=== PATIENT | female | born 1965 | race Caucasian/White ===

== ENCOUNTER 2020-02-23 10:44 | Outpatient (REF) | payer MEDICARE, MEDICAID, SELFPAY | END 2020-02-23 10:45 | disposition home or self-care (01) | LOC: HO.HAP 10:44 | PROVIDERS: PCP Internal Medicine; Referring Provider Internal Medicine; Visit Provider Internal Medicine | DX: Z46.1 Encounter for fitting and adjustment of hearing aid (principal) | CPT/HCPCS: V5266 ==

== ENCOUNTER 2020-07-13 09:29 | Outpatient (REF) | payer MEDICARE, MEDICAID, SELFPAY | END 2020-07-13 09:30 | disposition home or self-care (01) | LOC: HO.HAP 09:29 | PROVIDERS: Visit Provider Internal Medicine | DX: Z46.1 Encounter for fitting and adjustment of hearing aid (principal) | CPT/HCPCS: V5266 ==

== ENCOUNTER 2021-01-16 16:10 | Outpatient (REF) | payer MEDICARE, MEDICAID, SELFPAY | END 2021-01-16 16:11 | disposition home or self-care (01) | LOC: HO.HAP 16:10 | PROVIDERS: Visit Provider Internal Medicine | DX: Z46.1 Encounter for fitting and adjustment of hearing aid (principal); H90.3 Sensorineural hearing loss, bilateral | CPT/HCPCS: V5266 ==

== ENCOUNTER 2021-06-10 16:18 | Outpatient (REF) | payer MEDICARE, MEDICAID, SELFPAY | END 2021-06-10 16:19 | disposition home or self-care (01) | LOC: HO.HAP 16:18 | PROVIDERS: Visit Provider Internal Medicine | DX: Z46.1 Encounter for fitting and adjustment of hearing aid (principal); H90.3 Sensorineural hearing loss, bilateral | CPT/HCPCS: V5266 ==

== ENCOUNTER 2021-12-10 13:03 | Outpatient (REF) | payer MEDICARE, MEDICAID, SELFPAY | END 2021-12-10 13:04 | disposition home or self-care (01) | LOC: HO.HAP 13:03 | PROVIDERS: Visit Provider Internal Medicine | DX: Z46.1 Encounter for fitting and adjustment of hearing aid (principal); H90.3 Sensorineural hearing loss, bilateral | CPT/HCPCS: V5266 ==

== ENCOUNTER 2022-03-17 14:54 | Outpatient (REF) | payer MEDICARE, MEDICAID, SELFPAY | END 2022-03-17 14:55 | disposition home or self-care (01) | LOC: HO.HAP 14:54 | PROVIDERS: Visit Provider Internal Medicine | DX: Z46.1 Encounter for fitting and adjustment of hearing aid (principal); H90.3 Sensorineural hearing loss, bilateral | CPT/HCPCS: V5266 ==

== ENCOUNTER 2022-06-19 12:25 | Outpatient (REF) | payer MEDICARE, MEDICAID, SELFPAY | END 2022-06-19 12:26 | disposition home or self-care (01) | LOC: HO.HAP 12:25 | PROVIDERS: Visit Provider Internal Medicine | DX: Z46.1 Encounter for fitting and adjustment of hearing aid (principal); H90.3 Sensorineural hearing loss, bilateral | CPT/HCPCS: V5266 ==

== ENCOUNTER 2023-02-04 15:06 | Outpatient (REF) | payer MEDICARE, MEDICAID, SELFPAY | END 2023-02-04 15:07 | disposition home or self-care (01) | LOC: HO.HAP 15:06 | PROVIDERS: Visit Provider Internal Medicine | DX: Z46.1 Encounter for fitting and adjustment of hearing aid (principal); H90.3 Sensorineural hearing loss, bilateral | CPT/HCPCS: V5266 ==

== ENCOUNTER 2023-05-08 12:23 | Outpatient (REF) | payer MEDICARE, MEDICAID, SELFPAY | END 2023-05-08 12:24 | disposition home or self-care (01) | LOC: HO.HAP 12:23 | PROVIDERS: Visit Provider Internal Medicine | DX: Z46.1 Encounter for fitting and adjustment of hearing aid (principal); H90.3 Sensorineural hearing loss, bilateral | CPT/HCPCS: V5266 ==

== ENCOUNTER 2023-08-06 12:08 | Outpatient (REF) | payer MEDICARE, MEDICAID, SELFPAY | END 2023-08-06 12:09 | disposition home or self-care (01) | LOC: HO.HAP 12:08 | PROVIDERS: Visit Provider Internal Medicine | DX: Z46.1 Encounter for fitting and adjustment of hearing aid (principal); H90.3 Sensorineural hearing loss, bilateral | CPT/HCPCS: V5266 ==

== ENCOUNTER 2023-12-02 10:08 | Outpatient (REF) | payer MEDICARE, MEDICAID, SELFPAY | END 2023-12-02 10:09 | disposition home or self-care (01) | LOC: HO.HAP 10:08 | PROVIDERS: Visit Provider Internal Medicine | DX: Z46.1 Encounter for fitting and adjustment of hearing aid (principal); H90.3 Sensorineural hearing loss, bilateral | CPT/HCPCS: V5266 ==

== ENCOUNTER 2024-03-17 14:53 | Outpatient (REF) | payer MEDICARE, MEDICAID, SELFPAY ==
--- OUTSIDE RECORDS SUMMARY | 2024-03-17 15:06 | XMS_ITS | Continuity of Care Document ---
Author Organization [facility] Address [address] [place] [address] Phone [phone] Problems Active Problems Provider Date Multinodular gogale Nair M.D. Onse t: 01/01/2022 Social History Type Date Description Comments Sex Unknown Lives With Male Partner ETOH Use Rarely consumes alcohol Tobacco Use Start: Unknown Patient has never smoked Allergies and adverse reactions Active Allergies Criticality Reaction Severity Comments Date Penicillin V Unable to assess criticality 01/01/2022 Prozac Unable to assess criticality 01/01/2022 Motrin Unable to assess criticality 01/01/2022 Medications Active Medications SIG Qnty Indications Ordering Provider Date Lyvwgwevau12lc Tablets Sukhjinder Oconnell M.D. Losartan [id number] Tablets Take 1 Tablet By Mouth Once Daily Rock Beltran MD Oxybutynin Chloride ER15mg Tablets ER 24HR Take 1 Tablet By Mouth Once Daily Rock Beltrna MD Tobramycin-Dexamethas one0.3-0.1% Suspension Instill 3 Drops Into Affected Ear Twice Daily For 14 Days Unknown Clotrimazole1% Cream Apply Cream Topically To Affected Area(S) Twice Daily Unknown Estradiol0.1mg/GM Cream Insert 1 Gram Of Cream Vaginally AT Bedtime 3 Nights A Week Unknown Albuterol Sulfate DGS277(90Base) mcg/Act Aerosol Inhale 2 Puffs By Mouth Every 4 Hours as Needed For Wheezing Rock Beltran MD Eq Allergy Hhyitu01qa Tablets Take 1 Tablet By Mouth Once Daily Sukhjinder Oconnell M.D. Idjlgysvj744-0.5mcg/A ct Aerosol Inhale 2 Puffs By Mouth Twice Daily. Rinse Mouth With Water After Use To Reduce [employer] fitch MD Drmykcgsf0qx Tablets Take 1 Tablet By Mouth Once Daily as Needed Unknown [id number] Tablets Take 2 Tablets By Mouth On Day 1 And Then Take 1 Tablet By Mouth Once A Day On D Unknown Vital Signs Date Vital Result Comment 01/01/2022 11:12am BP Systolic 104 mmHg BP Diastolic 86 mmHg Heart Rate 72 /min Height 61 inches 5'1 Weight 204.38 lb BMI (Body Mass Index) 38.6 kg/m2 Results Test Acquired Date Facility Test Result H/L Range Note Laboratory test finding 01/01/2022 [facility] TSH With Reflex To FT4 1.71 uIU/mL (0.4-4.2 ) Comprehensive Metabolic Panl 01/01/2022 [facility] Glucose 106 mg/dL High (70-99) BUN 17 mg/dL (6-20) Creatinine 0.9 mg/dL (0.5-1.0 ) Sodium 142 mmol/L (133-145 ) Potassium 4.8 mmol/L (3.6-5.2 ) Chloride 107 mmol/L (98-107) Bicarbonate 26 mmol/L (22-29) Anion Gap 9 (4-17) Albumin 4.4 GM/DL (3.4-4.8 ) Calcium 10.1 mg/dL (8.6-10. 5) Bilirubin,Total 0.5 mg/dL (0-1.2 ) Total Protein 6.3 GM/DL (6.2-8.2 ) Ag Ratio 2.3 Ast 16 U/L (0-32) Alk Phos 95 U/L (35-104) Alt 13 U/L (0-33) Estimated GFR Creatinine 78 ML/MIN/1.7 3M2 1 Laboratory test finding 01/01/2022 [facility] 25Oh Vitamin D 21.0 NG/ML (20-50) PTH, Intact 99 pg/mL High (15-65) Phosphorus 2.6 mg/dL (2.5-4.5 ) 1 Creatinine based est imated glomerular filtration (eGFR) in adults is calculated using the [employer] recommended 2020 CKD-EPI equation. Estimates GFR from serum creatinine, age and sex. Medical Devices Description No Information Available Encounters Type Date Location Provider Dx Diagnosis Office Visit 01/01/2022 11:00a Main Office Naga Nair M.D. E04.2 Nontoxic multinodular goiter E21.3 Hyperparathyroidism, unspecified Assessments Date Code Description Provider 01/01/2022 E04.2 Nontoxic multinodular goiter Naga Nair M.D. 01/01/2022 E21.3 Hyperparathyroidism Naga Frankel M.D. Plan of Treatment No Information Available Functional Status Description No Information Available Mental Status Description No Information Available Referrals Description No Information Available
--- OUTSIDE RECORDS SUMMARY | 2024-03-17 15:06 | XMS_ITS | Data Portability ---
Author Organization [place] - [facility], Allergy Address [address] [address] Care Team Providers Care Bobcat Operator Name Role Phone CHAPIN LIU Primary Care Provider Assessment Encounter Date Assessment Date Assessment LastModified by Organization Details LastModified Time 01/08/2024 01/08/2024 58-year-old female with bilateral canal wall down mastoidectomy and bilateral TM perforations presents for evaluation of otorrhea. On examination there is mild otorrhea on the right side coming from the middle ear space. Mastoid cavity is remarkably clean. There is some squamous debris within the left mastoid cavity which was carefully debrided today. Stable, dry total TM perforation on the side as well. I recommended otic drops for the right side and continued dry ear precaution. Follow-up in 6 months for routine mastoid debridement. [email or web address] Not available 01/08/2024 09:35:35 Plan of Treatment Reminders Order Date Submit Date Provider Last Modified By Organization Details Last Modified Time Details Appointments Establish ed 10 2024 09:30A M PARISH ZAMORANO MD Not available Not available Not available Lab None recorded. Referral None recorded. Procedures None recorded. Surgeries None recorded. Imaging None recorded. Medication Orders ofloxacin 0.3 % ear drops 2023 024 [facility], [address] [facility], [place], [address], 01/08/2024 09:38:32 Patient TargetsNo targets recorded. Patient InstructionsNo instructions recorded. Reason for Referral None Reported. Problems Name Problem SNOMED Code Status Onset Date Resolution Date Notes Provider Name and Address Organization Details Recorded Time Otorrhea of left ear [id number] 84573 Active 2019 Otorrhea , left ear; Note: Date Diagnose d: 08/11/2019 2:23 PM (H92.12) Not Available [facility] 4 02:14:15 Acute frontal sinusiti s 23184252 Completed 202211/06/2023 Acute recurren t frontal sinusiti s; Note: Date Diagnose d: 11/04/2022 4:04 PM (J01.11) Not Available [facility] 4 02:13:04 Chronic mastoidi tis 14372535 Active 2014 Chronic mastoidi tis; Note: Date Diagnose d: 5 10:59 AM (383.1) Not Available [facility] 4 02:13:07 Postmast oidectom y complica tion 54517310 Active 2014 Other disorder s followin g mastoide ctomy, left ear; Note: Date Diagnose d: 03/15/20 15 1:38 PM (H95.192 ) Not Available [facility] 4 02:13:31 Impacted cerumen in right ear 25183755269 04401 Active 2019 Impacted cerumen, right ear; Note: Date Diagnose d: 0 4:17 PM (H61.21) Impact ed cerumen, right ear; Note: Date Diagnose d: 0 9:18 AM (H61.21) ; Start Date : 07/29/19 20 Not Available [facility] 4 02:13:38 Mixed conducti ve and sensorin eural hearing loss, bilatera l 304516390 Active 2018 Hearing loss: Mixed hearing loss, bilatera l; Location : [facility] Condit ion: stable N ote: Date Diagnose d: 4 3:07 PM (389.22) ; Start Date : 01/04/20 14 Mixed conducti ve and sensorin eural hearing loss, bilatera l; Note: Date Diagnose d: 02/03/20 19 9:53 AM (H90.6) Mixed conducti ve and sensorin eural hearing loss, bilatera l; Note: Date Diagnose d: 03/15/20 15 1:38 PM (H90.6) [mapped from ICD9 code: 389.22] ; Start Date : 03/15/20 15 Not Available [facility] 4 02:14:19 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; Note: Date Diagnose d: 11/07/2014 11:50 AM (383.33) Not Available [facility] 4 02:13:51 Marginal perforat ion of tympanic membrane 57039001 Active 2016 Other marginal perforat ions of tympanic membrane , left ear; Note: Date Diagnose d: 12/09/2016 2:59 PM (H72.2X2 ) Not Available [facility] 4 02:14:07 Otorrhea of right ear 56073802884 02069 Active 2022 Otorrhea , right ear; Note: Date Diagnose d: 11/04/2022 4:04 PM (H92.11) Not Available [facility] 4 02:13:52 Superfic ial mycosis 692914412 Completed 201611/06/2023 Other specifie d superfic ial mycoses; Note: Date Diagnose d: 7 2:12 PM (B36.8) Not Available [facility] 4 02:13:15 Acute lymphade nitis 35509504 Active 2016 Acute lymphade nitis, unspecif ied; Note: Date Diagnose d: 12/09/2016 2:58 PM (L04.9) Not Available [facility] 4 02:14:12 Benign paroxysm al position al vertigo 692041750 Active 2020 Benign paroxysm al vertigo, right ear; Note: Date Diagnose d: 1 3:57 PM (H81.11) Not Available [facility] 4 02:14:42 Otorrhea of bilatera l ears 73010769868 09445 Active 2017 Otorrhea , bilatera l; Note: Date Diagnose d: 8 3:55 PM (H92.13) Not Available [facility] 4 02:14:18 Acute sinusiti s 59434582 Completed 201811/06/2023 Other acute sinusiti s; Note: Date Diagnose d: 9 3:44 PM (J01.80) Not Available [facility] 4 02:13:51 Otorrhea 40831336 Active 2014 Otorrhea ; Note: Date Diagnose d: 06/05/2014 10:29 AM (388.60) Not Available [facility] 4 02:14:31 Total perforat ion of right tympanic membrane 87853566512 95062 Active 2016 Total perforat ions of tympanic membrane , right ear; Note: Date Diagnose d: 12/09/2016 2:58 PM (H72.821 ) Not Available [facility] 4 02:13:39 Pain of left temporom andibula r joint 38881040156 745645 Active 2016 Arthralg ia of left temporom andibula r joint; Note: Date Diagnose d: 12/09/2016 3:00 PM (M26.622 ) Not Available [facility] 4 02:13:11 Perforat ion of tympanic membrane 77965322 Active 2013 Perforat ion of tympanic membrane , unspecif ied; Location : [place]ater[place] l Condit ion: stable N ote: Date Diagnose d: 4 3:07 PM (384.20) Not Available [facility] 4 02:13:34 Finding of device of ear 723002260 Active 2022 Presence of bone-con duction hearing device; Note: Date Diagnose d: 12/11/2022 5:42 PM (Z96.29) Not Available [facility] 4 02:12:51 Total perforat ion of bilatera l tympanic membrane s 68289495608 25384 Active 2020 Total perforat ions of tympanic membrane , bilatera l; Note: Date Diagnose d: 1 3:58 PM (H72.823 ) Not Available [facility] 4 02:13:15 Bilatera l perforat ion of tympanic membrane s 30264879383 93761 Active 2014 Unspecif ied perforat ion of tympanic membrane , bilatera l; Note: Date Diagnose d: 03/15/20 15 1:38 PM (H72.93) [mapped from ICD9 code: 384.20] Not Available [facility] 4 02:14:04 Candidal otitis externa 87978724 Active 2014 Otomycos is; Note: Date Diagnose d: 5 3:09 PM (112.82) Not Available [facility] 4 02:14:19 Problem Notes None recorded. Procedures Surgical History Date Name Laterality Status Provider Name and Address Organization Details Recorded Time 4 Debridement of Mastoid Cavity bilat completed ADAN CASTANEDA PA-C [address] [place] [address], [address], [facility] - [facility] 01/08/2024 09:33:33 Imaging Results None recorded. Procedure Notes None recorded. Medical Equipment None Reported. Allergies Allergen ID Allergen Name Allergen Category Reaction Reaction Severity Criticality Documentation Date Start Date Code Code System Note Provider Name and Address Organization Details Recorded Time 20222 clindamyc in hydrochlo ride medicatio n other Not available Not available 08/18/2023 66519 RxNorm React ion: unkno wn, unspe cifie d;; Not Available [facility] 4 00:49:57 06771 ibuprofen medicatio n other Not available Not available 08/18/2023 5640 RxNorm React ion: unkno wn, unspe cifie d;; Not Available [facility] 4 00:50:08 29690 latex environme nt,medica tion other Not available Not available 08/18/2023 84427 91 RxNorm React ion: unkno wn, unspe cifie d;; Not Available [facility] 4 00:50:09 90534 oxycodone medicatio n other Not available Not available 08/18/2023 7804 RxNorm React ion: unkno wn, unspe cifie d;; Not Available [facility] 4 00:50:10 57271 ciproflox acin hydrochlo ride medicatio n other Not available Not available 08/18/2023 83724 RxNorm React ion: unkno wn, unspe cifie d;; Not Available [facility] 4 00:50:22 17967 fluoxetin e medicatio n other Not available Not available 08/18/2023 4493 RxNorm React ion: unkno wn, unspe cifie d;; Not Available [facility] 4 00:24:17 07529 acetamino phen medicatio n other Not available Not available 08/18/2023 161 RxNorm React ion: unkno wn, unspe cifie d;; Not Available [facility] 4 00:50:40 64213 penicilli n V potassium medicatio n other Not available Not available 08/18/2023 95044 5 RxNorm React ion: unkno wn, unspe cifie d;; Not Available [facility] 4 00:50:41 Medications Name Sig Start Date Stop Date Status Note LastModified by Organization Details LastModified Time vitamin d3 (sully) 50mcg cap TAKE 1 CAPSULE BY MOUTH ONCE DAILY active Not Available Not Available No t Available losartan 50 mg tablet active Medicati on ID: [id number] B rand Name: losartan Send Method: E-Prescr ibed Sub s Allowed: subs OK Medic ationGen ericName : losartan Not Available Not Available Not Available oxybutyni n chloride ER 15 mg tablet,ex tended release 24 hr TAKE 1 TABLET BY MOUTH ONCE DAILY active Not Available Not Available No t Available doxycycli ne hyclate 100 mg capsule by mouth 2022 active Medicati on ID: [id number] D uration Value: 10 Brand Name: doxycycl ine hyclate Send Method: E-Prescr ibed Sub s Allowed: subs OK Speci al Instruct ion: Take 1 po BID X 10 days Med icationG enericNa me: doxycycl ine hyclate Not Available Not Available Not Available cetirizin e 10 mg tablet TAKE 1 TABLET BY MOUTH AT BEDTIME STOP LORATADI NE active Not Available Not Available No t Available oxybutyni n chloride ER 10 mg tablet,ex tended release 24 hr 12/20 completed Medicati on ID: 188 Dura tion Value: 30 Reason: () Brand Name: oxybutyn in chloride Send Method: E-Prescr ibed Sub s Allowed: subs OK Speci al Instruct ion: TAKE 1 TABLET BY MOUTH EVERY DAY Medi cationGe nericNam e: oxybutyn in chloride Not Available Not Available Not Available Lotrisone 1 %-0.05 % topical cream 10/02 completed Medicati on ID: [id number] P rescribe d By Name: COLLEEN Mesa nd Name: Lotrison e Send Method: E-Prescr ibed Sub s Allowed: subs OK Speci al Instruct ion: apply to external ear tid X 2 weeks Me dication GenericN tank: Lotrison e Not Available Not Available Not Available hydrocodo ne 5 mg-acetam inophen 325 mg tablet 12/20 completed Medicati on ID: [id number] D uration Value: 5 Reason: () Brand Name: hydrocod one-acet aminophe n Send Method: E-Prescr ibed Sub s Allowed: subs OK Medic ationGen ericName : hydrocod one-acet aminophe n Not Available Not Available Not Available Zithromax Z-Danny 250 mg tablet Take 1 pack by mouth as directed active Medicati on ID: [id number] P rescribe d By Name: Contreras Stern nd Name: Zithroma x Z-Danny Se nd Method: E-Prescr ibed Sub s Allowed: subs OK Medic ationGen ericName : Zithroma x Z-Danny Not Available Not Available Not Available acetamino phen 300 mg-codein e 30 mg tablet 01/02 completed Medicati on ID: 186 Dura tion Value: 3 Reason: () Brand Name: acetamin ophen-co deine Se nd Method: E-Prescr ibed Sub s Allowed: subs OK Speci al Instruct ion: TAKE 1 TABLET BY MOUTH EVERY 4 HOURS Me dication GenericN tank: acetamin ophen-co deine Not Available Not Available Not Available ofloxacin 0.3 % ear drops 4 drops into right ear twice daily for 14 days. active Not Available Not Available No t Available famotidin e 20 mg tablet active Medicati on ID: [id number] B rand Name: famotidi ne Send Method: E-Prescr ibed Sub s Allowed: subs OK Medic ationGen ericName : famotidi ne Not Available Not Available Not Available lorazepam 0.5 mg tablet 03/06 completed Medicati on ID: [id number] D uration Value: 30 Brand Name: lorazepa m Send Method: E-Prescr ibed Sub s Allowed: subs OK Medic ationGen ericName : lorazepa m Not Available Not Available Not Available metoclopr amide 5 mg tablet 01/03 completed Medicati on ID: 194 Dura tion Value: 2 Reason: () Brand Name: metoclop ramide HCl Send Method: E-Prescr ibed Sub s Allowed: subs OK Speci al Instruct ion: TAKE 1 TABLET BY MOUTH EVERY 6 HOURS DIRECTED Medicat ionGener icName: metoclop ramide HCl Not Available Not Available Not Available K-Y Lubricati ng topical jelly 12/20 completed Medicati on ID: [id number] P rescribe d By Name: COLLEEN Mesa nd Name: K-Y Lubricat ing Send Method: E-Prescr ibed Sub s Allowed: subs BRIANNA Henry al Instruct ion: Apply to nose TID Medi cationGe nericNam e: K-Y Lubricat ing Not Available Not Available Not Available sulfaceta mide sodium 10 % eye drops 2014 active Medicati on ID: [id number] Du ration Value: 10 Prescri bed By Name: COLLEEN Mesa nd Name: sulfacet amide sodium S end Method: E-Prescr ibed Sub s Allowed: subs BRIANNA Henry al Instruct ion: 4 drops into left ear bid X 10 days Med icationG enericNa me: sulfacet amide sodium Not Available Not Available Not Available Bactroban 2 % topical ointment 2019 active Medicati on ID: [id number] Pr escribed By Name: COLLEEN Mesa nd Name: Bactroba n Send Method: E-Prescr ibed Sub s Allowed: subs OK Speci al Instruct ion: to be applied to the ear in office as directed Medicat ionGener icName: Bactroba n Not Available Not Available Not Available losartan 25 mg tablet 03/06 completed Medicati on ID: [id number] D uration Value: 90 Brand Name: losartan Send Method: E-Prescr ibed Sub s Allowed: subs OK Medic ationGen ericName : losartan Not Available Not Available Not Available clotrimaz ole 1 % topical solution 03/15 completed Medicati on ID: [id number] Pr escribed By Name: COLLEEN Mesa nd Name: eleuterio millichris Sen d Method: E-Prescr ibed Sub s Allowed: subs OK Speci al Instruct ion: 4 drops to affected ear three times a day X 14 days Med icationG enericNa me: clotrima zole Not Available Not Available Not Available pyridoxin e (vitamin B6) 50 mg tablet TAKE 2 TABLETS BY MOUTH ONCE DAILY active Not Available Not Available No t Available hydrocort isone 2.5 % topical cream 05/04 completed Medicati on ID: [id number] P rescribe d By Name: COLLEEN Mesa nd Name: hydrocor tisone S end Method: E-Prescr ibed Sub s Allowed: subs OK Specmichael al Instruct ion: Apply to the external ears BID X 30 days Med icationG enericNa me: hydrocor tisone Not Available Not Available Not Available fluvoxami ne 50 mg tablet 12/20 completed Medicati on ID: 419 Reas on: () Brand Name: fluvoxam ine Send Method: E-Prescr ibed Sub s Allowed: subs OK Medic ationGen ericName : fluvoxam ine Not Available Not Available Not Available estradiol 0.5 mg tablet 03/06 completed Medicati on ID: 192 Dura tion Value: 30 Brand Name: estradio l Send Method: E-Prescr ibed Sub s Allowed: subs OK Speci al Instruct ion: TAKE 1 TABLET BY MOUTH EVERY DAY Medi cationGe nericNam e: estradio l Not Available Not Available Not Available lorazepam 1 mg tablet active Medicati on ID: [id number] B rand Name: lorazepa m Send Method: E-Prescr ibed Sub s Allowed: subs OK Medic ationGen ericName : lorazepa m Not Available Not Available Not Available Nasonex 50 mcg/actua tion [place] 2 spray into both nostrils 2013 active Medicati on ID: 418 Dura tion Value: 10 Brand Name: Nasonex Send Method: E-Prescr ibed Sub s Allowed: subs OK Medic ationGen ericName : Nasonex Not Available Not Available Not Available albuterol sulfate HFA 90 mcg/actua tion aerosol inhaler INHALE 2 PUFFS BY MOUTH EVERY 6 HOURS active Not Available Not Available No t Available clotrimaz ole 1 % topical cream APPLY CREAM TOPICALL Y TWICE DAILY FOR 14 DAYS active Not Available Not Available No t Available tobramyci n 0.3 %-dexamet hasone 0.1 % eye drops,cami pension INSTILL 3 DROPS INTO AFFECTED EAR TWICE DAILY FOR 14 DAYS active Not Available Not Available No t Available Saline Nasal 0.65 % spray aerosol 1 spray into both nostrils 2014 active Medicati on ID: [id number] Pr escribed By Name: COLLEEN Mesa nd Name: Saline Nasal Se nd Method: E-Prescr ibed Sub s Allowed: subs OK Medic ationGen ericName : Saline Nasal Not Available Not Available Not Available Vitamin D3 25 mcg (1,000 unit) tablet 03/06 completed Medicati on ID: 416 Bran d Name: Vitamin D3 Send Method: E-Prescr ibed Sub s Allowed: subs OK Medic ationGen ericName : Vitamin D3 Not Available Not Available Not Available Allergy Relief (loratadi ne) 10 mg tablet 03/06 completed Medicati on ID: [id number] D uration Value: 90 Brand Name: Allergy Relief (loratad ine) Sen d Method: E-Prescr ibed Sub s Allowed: subs OK Speci al Instruct ion: TAKE 1 TABLET BY MOUTH ONCE DAILY Me dication GenericN tnak: Allergy Relief (loratad ine) Not Available Not Available Not Available Cortispor in 1 % topical ointment 09/08 completed Medicati on ID: [id number] Pr escribed By Name: COLLEEN Mesa nd Name: Cortispo rin Send Method: E-Prescr ibed Sub s Allowed: subs OK Speci al Instruct ion: To have applied to ear in office as directed Medicat ionGener icName: Cortispo rin Not Available Not Available Not Available Zithromax TRI-DANNY 500 mg tablet 1 pack by mouth 2017 active Medicati on ID: [id number] D uration Value: 3 Prescri bed By Name: Contreras Stern nd Name: Zithroma x TRI-DANNY Send Method: E-Prescr ibed Sub s Allowed: subs OK Medic ationGen ericName : Zithroma x TRI-DANNY Not Available Not Available Not Available Symbicort 160 mcg-4.5 mcg/actua tion HFA aerosol inhaler 2016 active Medicati on ID: [id number] D uration Value: 30 Brand Name: Symbicor t Send Method: E-Prescr ibed Sub s Allowed: subs OK Medic ationGen ericName : Symbicor t Not Available Not Available Not Available Vitamin D3 50 mcg (2,000 unit) capsule active Medicati on ID: [id number] B rand Name: Vitamin D3 Send Method: E-Prescr ibed Sub s Allowed: subs OK Speci al Instruct ion: TAKE 1 CAPSULE BY MOUTH ONCE DAILY Me dication GenericN tank: Vitamin D3 Not Available Not Available Not Available Breo Ellipta 100 mcg-25 mcg/dose powder for inhalatio n 12/20 completed Medicati on ID: 191 Dura tion Value: 30 Reason: () Brand Name: Breo Ellipta Send Method: E-Prescr ibed Sub s Allowed: subs OK Speci al Instruct ion: TAKE 1 PUFF BY MOUTH EVERY DAY Medi cationGe nericNam e: Breo Ellipta Not Available Not Available Not Available Vitals Date Recorded Body weight Body mass index (BMI) Body height Provider Name and Address Organization Details Last Updated DateTime 01/08/2024 77351.37 g 33.3 kg/m2 160.02 cm Kwan Moran [place] - [facility] 01/08/2024 09:09:31 Social History None recorded. Functional Status None recorded. Mental Status None recorded. Family History Nothing Reported. Medical History No medical history recorded. Gynecological HistoryNo gynecological history recorded. Obstetrics History GPAL:G 0 P 0 0 0 0 Past Encounters Encounter ID Performer Location Encounter Start Date Encounter Closed Date Diagnosis/Indication Diagnosis SNOMED-CT Code Diagnosis ICD10 Code [id number] MODESTO MCMILLAN MD [facility] [address] [address] 01/08/2024 08:59:51 01/08/2024 09:25:15 Bilateral perforation of tympanic membranes 9440124762 493085 H72.93 Chronic mastoiditis 8064 5004 H70.13 Finding of device of ear 780978086 Z96.29 Otorrhea of right ear 10 68519562 141029 H92.11 Total perf oration of bilateral tympanic membranes 1380569623 546123 H72.823 Health Concerns Section Related Observation LastModified by Organization Detai ls LastModified Time None Recorded Concern Status LastModified by Organization Details LastModified Time None Recorded Advance Directives Directive None Recorded Payers Encounter Date Sequence Insurance Name Policy Number Policy Walsh Covered Member ID Walsh Member ID Guarantor Name 01/08/2024 1 [place]ARE [place] [employer] Camilachrista Guerin [id number] Camila Guerin 01/08/2024 2 [place] [facility] Camila Guerin [id number] Camila Guerin Notes Date Note Type Note Provider Name and Address Organization Details Recorded Time 01/08/2024 text/html 58-year-old female with bilateral mastoid cavity presents for evaluation of otorrhea. She has been having yellow drainage from both sides and want her ears checked. MODESTO MCMILLAN MD [address] [place] [address], [place], [address], [facility] - [facility] 01/08/2024 09:47:00 OBGyn Episode No OBEpisode recorded.
--- OUTSIDE RECORDS SUMMARY | 2024-03-17 15:06 | XMS_ITS | Continuity of Care Document ---
Author Organization [place] - [facility], [facility] Address [address] [place] [address] Care Team Providers Care Intermodal Truck Driver Name Role Phone HILDASERJIOCHAPIN SIMS Primary Care Provider Assessment Encounter Date Assessment [...] in 6 months for routine mastoid debridement. [email or web address] Not available 01/08/2024 09:35:35 Plan of Treatment Reminders Order Date Submit Date Provider Last Modified By Organization Details Last Modified Time Details Appointments Establish ed 10 2024 09:30A M PARISH ZAMORANO MD Not available Not available Not available Lab None recorded. Referral None recorded. Procedures None recorded. Surgeries None recorded. Imaging None recorded. Medication Orders ofloxacin 0.3 % ear drops 2023 024 [facility], [address] [facility], [place], [address], 01/08/2024 09:38:32 Patient TargetsNo targets recorded. Patient InstructionsNo instructions recorded. Reason for Referral None Reported. Problems Name Problem SNOMED Code Status Onset Date Resolution Date Notes Provider Name and Address Organization Details Recorded Time Otorrhea of left ear [id number] 88533 Active 2019 Otorrhea , left ear; Note: Date Diagnose d: 08/11/2019 2:23 PM (H92.12) Not Available [facility] 4 02:14:15 Acute frontal sinusiti s 47733040 Completed 202211/06/2023 Acute recurren t frontal sinusiti s; Note: Date Diagnose d: 11/04/2022 4:04 PM (J01.11) Not Available [facility] 4 02:13:04 Chronic mastoidi tis 02404966 Active 2014 Chronic mastoidi tis; Note: Date Diagnose d: 5 10:59 AM (383.1) Not Available [facility] 4 02:13:07 Postmast oidectom y complica tion 35961205 Active 2014 Other disorder s followin g mastoide ctomy, left ear; Note: Date Diagnose d: 03/15/20 15 1:38 PM (H95.192 ) Not Available [facility] 4 02:13:31 Impacted cerumen in right ear 70680734031 63409 Active 2019 Impacted cerumen, right ear; Note: Date Diagnose d: 0 4:17 PM (H61.21) Impact ed cerumen, right ear; Note: Date Diagnose d: 0 9:18 AM (H61.21) ; Start Date : 07/29/19 20 Not Available [facility] 4 02:13:38 Mixed conducti ve and sensorin eural hearing loss, bilatera l 708886840 Active 2018 Hearing loss: Mixed hearing loss, bilatera l; Location : [facility] Condit ion: stable N ote: Date [...] Start Date : 03/15/20 15 Not Available [facility] 4 02:14:19 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; Note: Date Diagnose d: 11/07/2014 11:50 AM (383.33) Not Available [facility] 4 02:13:51 Marginal perforat ion of tympanic membrane 79887302 Active 2016 Other marginal perforat ions of tympanic membrane , left ear; Note: Date Diagnose d: 12/09/2016 2:59 PM (H72.2X2 ) Not Available [facility] 4 02:14:07 Otorrhea of right ear 56732538880 37512 Active 2022 Otorrhea , right ear; Note: Date Diagnose d: 11/04/2022 4:04 PM (H92.11) Not Available [facility] 4 02:13:52 Superfic ial mycosis 043066533 Completed 201611/06/2023 Other specifie d superfic ial mycoses; Note: Date Diagnose d: 7 2:12 PM (B36.8) Not Available [facility] 4 02:13:15 Acute lymphade nitis 14864372 Active 2016 Acute lymphade nitis, unspecif ied; Note: Date Diagnose d: 12/09/2016 2:58 PM (L04.9) Not Available [facility] 4 02:14:12 Benign paroxysm al position al vertigo 110550774 Active 2020 Benign paroxysm al vertigo, right ear; Note: Date Diagnose d: 1 3:57 PM (H81.11) Not Available [facility] 4 02:14:42 Otorrhea of bilatera l ears 64779034319 28677 Active 2017 Otorrhea , bilatera l; Note: Date Diagnose d: 8 3:55 PM (H92.13) Not Available [facility] 4 02:14:18 Acute sinusiti s 73689700 Completed 201811/06/2023 Other acute sinusiti s; Note: Date Diagnose d: 9 3:44 PM (J01.80) Not Available [facility] 4 02:13:51 Otorrhea 08929360 Active 2014 Otorrhea ; Note: Date Diagnose d: 06/05/2014 10:29 AM (388.60) Not Available [facility] 4 02:14:31 Total perforat ion of right tympanic membrane 31474142129 24250 Active 2016 Total perforat ions of tympanic membrane , right ear; Note: Date Diagnose d: 12/09/2016 2:58 PM (H72.821 ) Not Available [facility] 4 02:13:39 Pain of left temporom andibula r joint 11250051267 295360 Active 2016 Arthralg ia of left temporom andibula r joint; Note: Date Diagnose d: 12/09/2016 3:00 PM (M26.622 ) Not Available [facility] 4 02:13:11 Perforat ion of tympanic membrane 05509826 Active 2013 Perforat ion of tympanic membrane , unspecif ied; Location : [place]ater[place] l Condit ion: stable N ote: Date Diagnose d: 4 3:07 PM (384.20) Not Available [facility] 4 02:13:34 Finding of device of ear 191234932 Active 2022 Presence of bone-con duction hearing device; Note: Date Diagnose d: 12/11/2022 5:42 PM (Z96.29) Not Available [facility] 4 02:12:51 Total perforat ion of bilatera l tympanic membrane s 52931007748 84957 Active 2020 Total perforat ions of tympanic membrane , bilatera l; Note: Date Diagnose d: 1 3:58 PM (H72.823 ) Not Available [facility] 4 02:13:15 Bilatera l perforat ion of tympanic membrane s 03873851577 63512 Active 2014 Unspecif ied perforat ion of tympanic membrane , bilatera l; Note: Date Diagnose d: 03/15/20 15 1:38 PM (H72.93) [mapped from ICD9 code: 384.20] Not Available [facility] 4 02:14:04 Candidal otitis externa 64875493 Active 2014 Otomycos is; Note: Date Diagnose d: 5 3:09 PM (112.82) Not Available [facility] 4 02:14:19 Problem Notes None recorded. Procedures Surgical History Date Name Laterality Status Provider Name and Address Organization Details Recorded Time 4 Debridement of Mastoid Cavity bilat completed ADAN CASTANEDA PA-C [address] [place] [address], [address], [facility] 01/08/2024 09:33:33 Imaging Results None recorded. Procedure Notes None recorded. Medical Equipment None Reported. Allergies Allergen ID Allergen Name Allergen Category Reaction Reaction Severity Criticality Documentation Date Start Date Code Code System Note Provider Name and Address Organization Details Recorded Time 69188 clindamyc in hydrochlo ride medicatio n other Not available Not available 08/18/2023 58734 RxNorm React ion: unkno wn, unspe cifie d;; Not Available [facility] 4 00:49:57 36359 ibuprofen medicatio n other Not available Not available 08/18/2023 5640 RxNorm React ion: unkno wn, unspe cifie d;; Not Available [facility] 4 00:50:08 16493 latex environme nt,medica tion other Not available Not available 08/18/2023 58774 91 RxNorm React ion: unkno wn, unspe cifie d;; Not Available [facility] 4 00:50:09 80191 oxycodone medicatio n other Not available Not available 08/18/2023 7804 RxNorm React ion: unkno wn, unspe cifie d;; Not Available [facility] 4 00:50:10 09206 ciproflox acin hydrochlo ride medicatio n other Not available Not available 08/18/2023 81346 RxNorm React ion: unkno wn, unspe cifie d;; Not Available [facility] 4 00:50:22 07398 fluoxetin e medicatio n other Not available Not available 08/18/2023 4493 RxNorm React ion: unkno wn, unspe cifie d;; Not Available [facility] 4 00:24:17 48955 acetamino phen medicatio n other Not available Not available 08/18/2023 161 RxNorm React ion: unkno wn, unspe cifie d;; Not Available [facility] 4 00:50:40 74597 penicilli n V potassium medicatio n other Not available Not available 08/18/2023 42715 5 RxNorm React ion: unkno wn, unspe cifie d;; Not Available [facility] 4 00:50:41 Medications Name Sig Start Date Stop Date Status Note LastModified by Organization Details LastModified Time vitamin d3 (sully) 50mcg cap TAKE 1 CAPSULE BY MOUTH ONCE DAILY active Not Available Not Available No t Available losartan 50 mg tablet active Medicati on ID: [id number] B rand Name: losartan Send Method: E-Prescr ibed Sub s Allowed: subs OK Medic ationGen ericName : losartan Not Available Not Available Not Available oxybutyni n chloride ER 15 mg tablet,ex tended release 24 hr TAKE 1 TABLET BY MOUTH ONCE DAILY active Not Available Not Available No t Available doxycycli ne hyclate 100 mg capsule by mouth 2022 active Medicati on ID: [id number] D uration Value: 10 Brand Name: doxycycl [...] topical cream 10/02 completed Medicati on ID: [id number] P rescribe d By Name: COLLEEN [place] nd Name: Lotrison e Send Method: E-Prescr ibed Sub s Allowed: subs OK Speci al Instruct ion: apply to external ear tid X 2 weeks Me dication GenericN tank: Lotrison e Not Available Not Available Not Available hydrocodo ne 5 mg-acetam inophen 325 mg tablet 12/20 completed Medicati on ID: 614443 D uration Value: 5 Reason: () Brand Name: hydrocod one-acet aminophe n Send Method: E-Prescr ibed Sub s Allowed: subs OK Medic ationGen ericName : hydrocod one-acet aminophe n Not Available Not Available Not Available Zithromax Z-Danny 250 mg tablet Take 1 pack by mouth as directed active Medicati on ID: 923960 P rescribe d By Name: Contreras Stern [...] 20 mg tablet active Medicati on ID: [id number] B rand Name: famotidi ne Send Method: E-Prescr ibed Sub s Allowed: subs OK Medic ationGen ericName : famotidi ne Not Available Not Available Not Available lorazepam 0.5 mg tablet 03/06 completed Medicati on ID: [id number] D uration Value: 30 Brand Name: lorazepa [...] topical jelly 12/20 completed Medicati on ID: [id number] P rescribe d By Name: COLLEEN Mes[place] nd Name: K-Y Lubricat ing Send Method: E-Prescr ibed Sub s Allowed: subs OK Carl al Instruct ion: Apply to nose TID Medi cationGe nericNam e: K-Y Lubricat ing Not Available Not Available Not Available sulfaceta mide sodium 10 % eye drops 2014 active Medicati on ID: 88113 Du ration Value: 10 Prescri bed By Name: COLLEEN Mes[place] nd Name: sulfacet amide sodium S end Method: E-Prescr ibed Sub s Allowed: subs OK Speci al Instruct ion: 4 drops into left ear bid X 10 days Med icationG enericNa me: sulfacet amide sodium Not Available Not Available Not Available Bactroban 2 % topical ointment 2019 active Medicati on ID: [id number] Pr escribed By Name: COLLEEN Mes[place] nd Name: Bactroba n Send Method: E-Prescr ibed Sub s Allowed: subs OK Speci al Instruct ion: to be applied to the ear in office as directed Medicat ionGener icName: Bactroba n Not Available Not Available Not Available losartan 25 mg tablet 03/06 completed Medicati on ID: [id number] D uration Value: 90 Brand Name: losartan Send Method: E-Prescr ibed Sub s Allowed: subs OK Medic ationGen ericName : losartan Not Available Not Available Not Available clotrimaz ole 1 % topical solution 03/15 completed Medicati on ID: [id number] Pr escribed By Name: COLLEEN Mes[place] nd Name: clotriana white Sen d Method: E-Prescr ibed Sub s Allowed: subs OK Specmichael al Instruct ion: 4 drops to affected ear three times a day X 14 days Med icationG enericNa me: clotrima zole Not Available Not Available Not Available pyridoxin e (vitamin B6) 50 mg tablet TAKE 2 TABLETS BY MOUTH ONCE DAILY active Not Available Not Available No t Available hydrocort isone 2.5 % topical cream 05/04 completed Medicati on ID: 155591 P rescribe d By Name: COLELEN Mesa nd Name: hydrocor tisone S end Method: E-Prescr ibed Sub s Allowed: subs BRIANNA Henry al Instruct ion: Apply to the external [...] 1 mg tablet active Medicati on ID: 242200 B rand Name: lorazepa m Send Method: E-Prescr ibed Sub s Allowed: subs OK Medic ationGen ericName : lorazepa m Not Available Not Available Not Available Nasonex 50 mcg/actua tion Humptulips 2 spray into both nostrils 2013 active [...] both nostrils 2014 [place] ID: [id number] Pr escribed By Name: COLLEEN Mesa nd [...] mg tablet 03/06 completed Medicati on ID: [id number] D uration Value: 90 Brand Name: Allergy Relief (loratad ine) Sen d Method: E-Prescr ibed Sub s Allowed: subs OK Speci al Instruct ion: TAKE 1 TABLET BY MOUTH ONCE DAILY Me dication GenericN tank: Allergy Relief (loratad ine) Not Available Not Available Not Available Cortispor in 1 % topical ointment 09/08 completed Medicati on ID: 65228 Pr escribed By Name: COLLEEN Mesa nd Name: Cortispo rin Send Method: E-Prescr ibed Sub s Allowed: subs OK Speci al Instruct ion: To have applied to ear in office as directed Medicat ionGener icName: Cortispo rin Not Available Not Available Not Available Zithromax TRI-DANNY 500 mg tablet 1 pack by mouth 2017 active Medicati on ID: 656941 D uration Value: 3 Prescri bed By Name: Contreras Stern nd Name: Zithroma x TRI-DANNY Send Method: E-Prescr ibed Sub s Allowed: subs OK Medic ationGen ericName : Zithroma x TRI-DANNY Not Available Not Available Not Available Symbicort 160 mcg-4.5 mcg/actua tion HFA aerosol inhaler 2016 active Medicati on ID: [id number] D uration Value: 30 Brand Name: Symbicor t Send Method: E-Prescr ibed Sub s Allowed: subs OK Medic ationGen ericName : Symbicor t Not Available Not Available Not Available Vitamin D3 50 mcg (2,000 unit) capsule active Medicati on ID: [id number] B rand Name: Vitamin D3 Send Method: [...] Address Organization Details Last Updated DateTime 01/08/2024 92072.37 g 33.3 kg/m2 160.02 cm Kwan Moran [place] - [facility] 01/08/2024 09:09:31 Social History None recorded. Functional Status None recorded. Mental Status None recorded. Family History Nothing Reported. Medical History No medical history recorded. Gynecological HistoryNo gynecological history recorded. Obstetrics History GPAL:G 0 P 0 0 0 0 Past Encounters Encounter ID Performer Location Encounter Start Date Encounter Closed Date Diagnosis/Indication Diagnosis SNOMED-CT Code Diagnosis ICD10 Code [id number] MODESTO MCMILLAN MD [facility] [address] [address] 01/08/2024 08:59:51 01/08/2024 09:25:15 Bilateral perforation of tympanic membranes 5115377499 601806 H72.93 Chronic mastoiditis 8064 5004 H70.13 Finding of device of ear 216939126 Z96.29 Otorrhea of right ear 10 43257291 640969 H92.11 Total perf oration of bilateral tympanic membranes 2707146308 461463 H72.823 Health Concerns Section Related Observation LastModified by Organization Detai ls LastModified Time None Recorded Concern Status LastModified by Organization Details LastModified Time None Recorded Payers Encounter Date Sequence Insurance Name Policy Number Policy Walsh Covered Member ID Walsh Member ID Guarantor Name 01/08/2024 1 [place] [employer] Camila A Truong [id number] Camila Guerin 01/08/2024 2 [place] Camila Guerin [id number] Camila Guerin Notes Date Note Type Note Provider Name and Address Organization Details Recorded Time 01/08/2024 text/html 58-year-old female with bilateral mastoid cavity presents for evaluation of otorrhea. She has been having yellow drainage from both sides and want her ears checked. MODESTO MCMILLAN MD [address] [place] [address], [place], [address], [facility] - [facility] 01/08/2024 09:47:00 OBGyn Episode No OBEpisode recorded.
== END 2024-03-17 14:54 | disposition home or self-care (01) ==
LOC: HO.HAP 14:53
PROVIDERS: Visit Provider Nurse Practitioner Primary Care
DX: Z46.1 Encounter for fitting and adjustment of hearing aid (principal); H90.3 Sensorineural hearing loss, bilateral
CPT/HCPCS: V5266

== ENCOUNTER 2024-07-28 13:14 | Outpatient (REF) | payer MEDICARE, MEDICAID, SELFPAY ==
--- OUTSIDE RECORDS SUMMARY | 2024-07-28 15:36 | XMS_ITS | Encounter Summary ---
Author Organization [facility] Address [address] [facility] [address] [place] [address] Phone Care Team Providers Care Blocker Hand Name Role Phone Jamila Adair MD Primary Care Provider [phone]- [phone] Reason for Visit * Reason Comments Med Refill Encounter Details Date Type Department Care Team (Late st Contact Info) Description 07/12/2023 Refill [facility] [address] [place] [address] Juanjo Jean MD [address] [facility] [address] [place] [address] Social History Tobacco Use Types Packs/Day Years Used Date Smoking Tobacco: Never Smokeless Tobacco: Never Alcohol Use Standard Drinks/Week Comments No 0 (1 standard drink = 0.6 oz pur e alcohol) Comments Unknown Sex and Gender Information Value Date Recorded Sex Assigned at Not on file Legal Sex Female 5:14 PM EST Gender Identity Not on file Sexual Orientation Not on file documented as of this encounter Plan of Treatment Upcoming Encounters Date Type Department Care Team (Late st Contact Info) Description 07/13/2025 3:30 PM EDT Office Visit [facility] [address] [facility] [address] [place] [address] Arlyn Spangler ARNP [address] [facility] [address] [place] [address] documented as of this encounter Visit Diagnoses Not on filedocumented in this encounter Care Teams Blocker Hand Relationship Specialty Start Date End Date Jamila Adair MD [address] [facility] 1 [place] [address] PCP - General Internal Medicine 09/22/23 documented as of this encounter
--- OUTSIDE RECORDS SUMMARY | 2024-07-28 15:36 | XMS_ITS | Clinical Summary ---
Author Organization [facility] Address [address] [facility] [address] [place] [address] Phone Care Team Providers Care Knuckle Strap Sewer Name Role Phone Jamila Adair MD Primary Care Provider [phone]- [phone] Allergies Active Allergy Reactions Criticality Noted Date Comments Adhesive Tape 06/27/2020 Aspirin Other (see comments) 06/27/2020 Ciprofloxacin 06/27/2020 Clindamycin Other (see comments) 06/27/2020 Fluoxetine 06/27/2020 Ibuprofen 06/27/2020 Latex 06/27/2020 Penicillin G 06/27/2020 Oxycodone-Acetaminophen 06/27/2020 Beclomethasone Other (see comments) 06/27/2020 Ropinirole Other (see comments) 06/27/2020 Medications loratadine (CLARITIN) 10 MG tablet Take 1 tablet (10 mg total) by mouth in the morning and 1 tablet (10 mg total) in the evening. 180 tablet 023 Active pyridoxine (B-6) 50 MG tablet Take 2 tablets (100 mg total) by mouth 1 (one) time each day 180 tablet 3 024 Active oxybutynin XL (DITROPAN-XL) 15 MG 24 hr tabletIndications:Chr onic kidney disease, stage 2 (mild),Hypertension,P ersistent hematuria,Chronic glomerulonephritis Take 1 tablet (15 mg total) by mouth 1 (one) time each day 90 tablet 024 Active albuterol HFA (Ventolin HFA) 108 (90 Base) MCG/ACT inhalerIndications:Un complicated mild intermittent asthma, not otherwise specified Inhale 2 puffs every 4 (four) hours if needed for wheezing 18 g 1 024 Active cetirizine (ZyrTEC) 10 MG tablet Take 10 mg by mouth at bed time Active losartan (COZAAR) 50 MG tabletIndications:Chr onic kidney disease, stage 2 (mild),Hypertension Take 1 tablet (50 mg total) by mouth 1 (one) time each day 90 tablet 3 025 2025 Active Vitamin D, Cholecalciferol, 25 MCG (1000 UT) tabletIndications:Vit curry D deficiency, not otherwise specified TAKE 3 TABLETS (3000 UNITS TOTAL) BY MOUTH IN THE MORNING 270 tablet 025 Active losartan (COZAAR) 50 MG tablet Take 1 tablet (50 mg total) by mouth 1 (one) time each day 90 tablet 3 022 2024 Discontinued(R eorder (does not appear on AVS)) Cholecalciferol 50 MCG (2000 UT) capsule Take 2,000 Units by mouth 1 (one) time each day 2024 Discontinued Active Problems Problem Noted Date Diagnosed Date Vitamin D deficiency, not otherwise specified Hypercalcemia 09/22/2023 Chronic glomerulonephritis 01/31/2021 Chronic pelvic pain of female 01/31/2021 Hyperparathyroidism 01/31/2021 Persistent hematuria 01/31/2021 Chronic kidney disease, stage 2 (mild) Hypertension 06/27/2020 Encounters Date Type Department Care Team Description 07/16/2024 Refill [facility] [address] [facility] [address] [place] [address] Arlyn Spangler ARNP Vitamin D deficiency, not otherwise specified 07/14/2024 1:45 PM EDT Office Visit [facility] [address] [place] [address] Arlyn Spangler ARNP Chronic kidney disease, stage 2 (mild) (Primary Dx); Hypertension; Vitamin D deficiency, not otherwise specified 06/22/2024 Office Communication [facility] [address] [place] [address] Jason Miranda 05/17/2024 Refill [facility] [address] [facility] [address] [place] [phone] Alberto Quigley MD Chronic kidney disease, stage 2 (mild); Hypertension; Persistent hematuria; Chronic glomerulonephritis from Last 3 Months Family History Medical History Relation Comments Cancer Father Diabetes Father Heart disease Mother Hypertension Mother Stroke Mother Relation Status Comments Father Mother Alive Social History Tobacco Use Types Packs/Day Years Used Date Smoking Tobacco: Never Smokeless Tobacco: Never Tobacco Cessation:Counseling Given: Not Answered Alcohol Use Standard Drinks/Week Comments No 0 (1 standard drink = 0.6 oz pur e alcohol) Comments Unknown Sex and Gender Information Value Date Recorded Sex Assigned at Not on file Legal Sex Female 5:14 PM EST Gender Identity Not on file Sexual Orientation Not on file Last Filed Vital Signs Vital Sign Reading Time Taken Comments Blood Pressure 123/80 07/14/2024 2:01 PM EDT Pulse 75 07/14/2024 2:01 PM EDT Temperature - - Respiratory Rate - - Oxygen Saturation 96% 02/11/2023 4:17 PM EST Inhaled Oxygen Concentration - - Weight 91.2 kg (201 lb) 07/14/2024 2:01 PM EDT Height 154.9 cm (5' 1 ) 06/27/2020 4:39 PM EDT Body Mass Index 37.98 06/27/2020 4:39 PM EDT Plan of Treatment Upcoming Encounters Date Type Department Care Team (Late st Contact Info) Description 07/13/2025 3:30 PM EDT Office Visit [facility] [address] [facility] [address] [place] [phone] Arlyn Spangler ARNP [address] [facility] [address] [place] [address] Health Maintenance Due Date Last Done Comments Breast Cancer Screening 1965 Hepatitis B Vaccine (1 of 3 - 19+ 3-dose series) 1986 Pneumococcal Vaccine: 50+ Ye ars (3 of 3 - PCV) 05/25/2015 05/25/2014, 05/07/2014, 12/12/2011 Colorectal Cancer Screening: Annual FOBT 2016 Colorectal Cancer Screening: Colonoscopy 2016 Colorectal Cancer Screening: Sigmoidoscopy 2016 Influenza Vaccine (Season Ended) 2024 03/12/20, 01/01/2015 Pneumococcal Vaccine: Peds ( 0 to 5 Years) and At-Risk Patients (6 to 49 Years) Discontinued 05/25/2014, 05/07/2014, 12/12/2011 Insurance Medicaid [place] Medicaid [place] Medicare Care Teams Knuckle Strap Sewer Relationship Specialty Start Date End Date Jamila Adair MD [address] [facility] [address] [place] [address] PCP - General Internal Medicine 09/22/23
--- OUTSIDE RECORDS SUMMARY | 2024-07-28 15:36 | XMS_ITS | Encounter Summary ---
Author Organization [facility] Address [address] [facility] 200 [place] [address] Phone Care Team Providers Care Printing Mechanist Name Role Phone Jamila Adair MD Primary Care Provider [phone]- [phone] Encounter Details Date Type Department Care Team (Late Contact Info) Description 12/17/2021 Telephone [facility] 200 [place] [address] [place] MD [address] [place] [phone] Social History Tobacco Use Types Packs/Day Years [...] on file documented as of this encounter Miscellaneous Notes * Telephone Encounter - Tanja Moran - 12/17/2021 11:23 AM EDT [facility] pt has an appt with cardio on 12/25/21, She thanks you for your help getting this set up. documented in this encounter Plan of Treatment Upcoming Encounters Date Type Department Care Team (Late st Contact Info) Description 07/13/2025 3:30 PM EDT Office Visit [facility] [address] [facility] [address] [place] [address] Arlyn Spangler ARNP [address] [facility] 204 [place] [address] documented as of this encounter Visit Diagnoses Not on filedocumented in this encounter Care Teams Printing Mechanist Relationship Specialty Start Date End Date Jamila Adair MD [address] [facility] 1 [place] [address] PCP - General Internal Medicine 09/22/23 documented as of this encounter
--- OUTSIDE RECORDS SUMMARY | 2024-07-28 15:36 | XMS_ITS | Continuity of Care Document ---
Author Organization [facility] Address [address] [place] [address] Phone [phone] Problems Active Problems Provider Date Multinodular gogale [...] Medications SIG Qnty Indications Ordering Provider Date Uelcifvyhy25tc Tablets Sukhjinder Oconnell M.D. Losartan Xshvudwso08sd Tablets Take 1 Tablet By Mouth Once Daily Rock Beltran MD Oxybutynin Chloride ER15mg Tablets ER 24HR Take 1 Tablet By Mouth Once Daily Rock Beltran MD Tobramycin-Dexamethas one0.3-0.1% Suspension Instill 3 Drops Into Affected Ear Twice Daily For 14 Days Unknown Clotrimazole1% Cream Apply Cream Topically To Affected Area(S) Twice Daily Unknown Estradiol0.1mg/GM Cream Insert 1 Gram Of Cream Vaginally AT Bedtime 3 Nights A Week Unknown Albuterol Sulfate ELR077(90Base) mcg/Act Aerosol Inhale 2 Puffs By Mouth Every 4 Hours as Needed For Wheezing Rock Beltran MD Eq Allergy Igibjl21st Tablets Take 1 Tablet By Mouth Once Daily Sukhjinder Oconnell M.D. Trylnbzwp736-1.5mcg/A ct Aerosol Inhale 2 Puffs By Mouth Twice Daily. Rinse Mouth With Water After Use To Reduce [employer] fitch MD Gjesufxji9fe Tablets Take 1 Tablet By Mouth Once Daily as Needed Unknown Rbezotfczaoj533wr Tablets Take 2 Tablets By Mouth On [...] Date Facility Test Result H/L Range Note TSH With Reflex To FT4 01/01/2022 [facility] TSH With Reflex To FT4 1.71 uIU/mL (0.4-4.2 ) Comprehensive Metabolic Panl 01/01/2022 [facility] Glucose 106 mg/dL High [...] Estimated GFR Creatinine 78 ML/MIN/1.7 3M2 1 25Oh Vitamin D 01/01/2022 [facility] 25Oh Vitamin D 21.0 NG/ML (20-50) PTH, Intact 01/01/2022 [facility] PTH, Intact 99 pg/mL High (15-65) Phosphorus 01/01/2022 [facility] Phosphorus 2.6 mg/dL (2.5-4.5 ) 1 Creatinine [...] Hyperparathyroidism Naga Frankel M.D. Plan of Treatment Future Appointment(s):* 11/14/2024 9:30 am - Naga Nair M.D. at Main Office 01/01/2022 - Naga Nair M.D.* E04.2 Nontoxic multinodular goiter * E21.3 Hyperparathyroidism Functional Status Description No Information Available Mental Status Description No Information Available Referrals Description No Information Available
--- OUTSIDE RECORDS SUMMARY | 2024-07-28 15:36 | XMS_ITS | Data Portability ---
Author Organization [place] - [facility], Allergy Address [address] [address] Care Team Providers Care Advanced Developer Name Role Phone ALEXACHAPIN Primary Care Provider Assessment Encounter Date Assessment [...] in 6 months for routine mastoid debridement. Not available 01/08/2024 09:35:35 07/18/2024 07/18/2024 Follow up with referring provider.Recomme nd reprogramming of her BAHA devices. [email or web address] Not available 07/18/2024 10:24:26 07/18/2024 07/18/2024 Patient with left canal wall down mastoidectomy cavity and bilateral near-total tympanic membrane perforations. No signs of acute or chronic inflammation today. A large amount of debris was removed from the left cavity. No debris on the right. Patient asked for prescription for drops which I sent, but with the instruction to not use these unless we give her specific instructions to be used to treat otorrhea. Patient wanted to have next debridement in 4 months, but depending on the degree of accumulation, she may be fine coming every 6 months. [email or web address] Not available 07/18/2024 11:15:58 Plan of Treatment Reminders Order Date Submit Date Provider Last Modified By Organization Details Last Modified Time Details Appointments MEYER Flexible Appointme nt 2024 03:00P M [facility] Not available Not available Not available Establish ed 15 2024 10:00A M ADAN CASTANEDA PA-C Not available Not available Not available Lab None recorded. Referral None recorded. Procedures None recorded. Surgeries None recorded. Imaging None recorded. Medication Orders tobramyci n 0.3 %-dexamet hasone 0.1 % eye drops,cami pension 2024 025 [facility] [place], [address], 07/18/2024 10:05:08 ofloxacin 0.3 % ear drops 2023 025 [facility] [address] [place], [address], 07/18/2024 09:27:56 Patient TargetsNo targets recorded. Patient InstructionsNo instructions recorded. Reason for Referral None Reported. Results Created Date Observation Date Name Description Value Unit Range Abnormal Flag Note LastModifiedBy Organization Detail LastModifiedTime 07/19/19 25 audio gram No observ ation record ed. BARCODE Not Available 2024 14:08:27 Result Notes None recorded. Problems Name Problem SNOMED Code Status Onset Date Resolution Date Notes Provider Name and Address Organization Details Recorded Time Otorrhea of left ear 20925110470 56143 Active 2019 Otorrhea , left ear; Note: Date Diagnose d: 08/11/2019 2:23 PM (H92.12) Not Available [facility] 4 02:14:15 Acute frontal sinusiti s 64913481 Completed 202211/06/2023 Acute recurren t frontal sinusiti s; Note: Date Diagnose d: 11/04/2022 4:04 PM (J01.11) Not Available [facility] 4 02:13:04 Chronic mastoidi tis 75755651 Active 2014 Chronic mastoidi tis; Note: Date Diagnose d: 5 10:59 AM (383.1) Not Available [facility] 4 02:13:07 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 Other disorder s followin g mastoide ctomy, left ear; Note: Date Diagnose d: 03/15/20 15 1:38 PM (H95.192 ) Not Available [facility] 4 02:13:31 Impacted cerumen in right ear 89609434084 44540 Active 2019 Impacted cerumen, right ear; Note: Date Diagnose d: 0 4:17 PM (H61.21) Impact ed cerumen, right ear; Note: Date Diagnose d: 0 9:18 AM (H61.21) ; Start Date : 07/29/19 20 Not Available [facility] 4 02:13:38 Mixed conducti ve and sensorin eural hearing loss, bilatera l 208596066 Active 2018 Hearing loss: Mixed hearing loss, bilatera l; Location : [facility] Condit ion: stable N ote: Date Diagnose [...] Start Date : 03/15/20 15 Not Available [facility] 4 02:14:19 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; Note: Date Diagnose d: 11/07/2014 11:50 AM (383.33) Not Available [facility] 4 02:13:51 Marginal perforat ion of tympanic membrane 93098232 Active 2016 Other marginal perforat ions of tympanic membrane , left ear; Note: Date Diagnose d: 12/09/2016 2:59 PM (H72.2X2 ) Not Available [facility] 4 02:14:07 Otorrhea of right ear 56642536117 90402 Active 2022 Otorrhea , right ear; Note: Date Diagnose d: 11/04/2022 4:04 PM (H92.11) Not Available [facility] 4 02:13:52 Superfic ial mycosis 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 Completed 201611/06/2023 Other specifie d superfic ial mycoses; Note: Date Diagnose d: 7 2:12 PM (B36.8) Not Available [facility] 4 02:13:15 Acute lymphade nitis 72426455 Active 2016 Acute lymphade nitis, unspecif ied; Note: Date Diagnose d: 12/09/2016 2:58 PM (L04.9) Not Available [facility] 4 02:14:12 Benign paroxysm al position al vertigo 585467283 Active 2020 Benign paroxysm al vertigo, right ear; Note: Date Diagnose d: 3:57 PM (H81.11) Not Available [facility] 4 02:14:42 Otorrhea of bilatera l ears 73074023749 Active 2017 Otorrhea , bilatera l; Note: Date Diagnose d: 8 3:55 PM (H92.13) Not Available [facility] 4 02:14:18 Acute sinusiti s 15541084 Completed 201811/06/2023 Other acute sinusiti s; Note: Date Diagnose d: 9 3:44 PM (J01.80) Not Available [facility] 4 02:13:51 Otorrhea 72717441 Active 2014 Otorrhea ; Note: Date Diagnose d: 06/05/2014 10:29 AM (388.60) Not Available [facility] 4 02:14:31 Total perforat ion of right tympanic membrane 67885736644 07996 Active 2016 Total perforat ions of tympanic membrane , right ear; Note: Date Diagnose d: 12/09/2016 2:58 PM (H72.821 ) Not Available [facility] 4 02:13:39 Pain of left temporom andibula r joint 50576321758 638601 Active 2016 Arthralg ia of left temporom andibula r joint; Note: Date Diagnose d: 12/09/2016 3:00 PM (M26.622 ) Not Available [facility] 4 02:13:11 Perforat ion of tympanic membrane 97849730 Active 2013 Perforat ion of tympanic membrane , unspecif ied; Location : [place] l Condit ion: stable N ote: Date Diagnose d: 4 3:07 PM (384.20) Not Available [facility] 4 02:13:34 Finding of device of ear 547683566 Active 2022 Presence of bone-con duction hearing device; Note: Date Diagnose d: 12/11/2022 5:42 PM (Z96.29) Not Available [facility] 4 02:12:51 Total perforat ion of bilatera l tympanic membrane s 80660013453 72166 Active 2020 Total perforat ions of tympanic membrane , bilatera l; Note: Date Diagnose d: 1 3:58 PM (H72.823 ) Not Available [facility] 4 02:13:15 Bilatera l perforat ion of tympanic membrane s 90454656910 79320 Active 2014 Unspecif ied perforat ion of tympanic membrane , bilatera l; Note: Date Diagnose d: 03/15/20 15 1:38 PM (H72.93) [mapped from ICD9 code: 384.20] Not Available [facility] 4 02:14:04 Candidal otitis externa 20468890 Active 2014 Otomycos is; Note: Date Diagnose d: 5 3:09 PM (112.82) Not Available [facility] 4 02:14:19 Sensorin eural hearing loss of bilatera l ears 257595469 Active 2024 STACI NAJERA, [facility] [address] [address], [place], [address] , [facility] 10:09:53 Problem Notes None recorded. Procedures Surgical History Date Name Laterality Status Provider Name and Address Organization Details Recorded Time 5 Comp Audio with Tymps (23693 & 16328) completed STACIISSAC BANKS [address] [place] [address], [phone], [facility] 07/18/2024 10:09:52 5 Debridement of Mastoid Cavity left completed PARISH ZAMORANO MD [address] [place] [address], [phone], [facility] 07/18/2024 10:02:11 4 Debridement of Mastoid Cavity bilat completed ADAN CASTANEDA PA-C [address] [place] [address], [phone], [facility] 01/08/2024 09:33:33 Imaging Results Imaging Date Name Status LastModified by Organiz ation Details LastModified Time 07/18/2024 audiogram completed BARCODE Information no t available 07/18/2024 14:08:27 Procedure Notes None recorded. Medical Equipment None Reported. Allergies Allergen ID Allergen Name Allergen Category Reaction Reaction Severity Criticality Documentation Date Start Date Code Code System Note Provider Name and Address Organization Details Recorded Time 61317 clindamyc in hydrochlo ride medicatio n other Not available Not available 08/18/2023 45049 RxNorm React ion: unkno wn, unspe cifie d;; Not Available [facility] 4 00:49:57 28151 ibuprofen medicatio n other Not available Not available 08/18/2023 5640 RxNorm React ion: unkno wn, unspe cifie d;; Not Available [facility] 4 00:50:08 32781 latex environme nt,medica tion other Not available Not available 08/18/2023 94392 91 RxNorm React ion: unkno wn, unspe cifie d;; Not Available [facility] 4 00:50:09 66945 oxycodone medicatio n other Not available Not available 08/18/2023 7804 RxNorm React ion: unkno wn, unspe cifie d;; Not Available [facility] 4 00:50:10 76751 ciproflox acin hydrochlo ride medicatio n other Not available Not available 08/18/2023 70109 RxNorm React ion: unkno wn, unspe cifie d;; Not Available [facility] 4 00:50:22 00533 fluoxetin e medicatio n other Not available Not available 08/18/2023 4493 RxNorm React ion: unkno wn, unspe cifie d;; Not Available [facility] 4 00:24:17 00345 acetamino phen medicatio n other Not available Not available 08/18/2023 161 RxNorm React ion: unkno wn, unspe cifie d;; Not Available [facility] 4 00:50:40 37810 penicilli n V potassium medicatio n other Not available Not available 08/18/2023 83245 5 RxNorm React ion: unkno wn, unspe cifie d;; Not Available [facility] 4 00:50:41 Medications Name Sig Start Date Stop Date Status Note LastModified by Organization Details LastModified Time vitamin d3 (sully) 50mcg cap TAKE 1 CAPSULE BY MOUTH ONCE DAILY 07/18 completed Not Available Not Available Not Available losartan 50 mg tablet TAKE 1 TABLET BY MOUTH NIGHTLY active Not Available Not Available No t Available oxybutyni n chloride ER 15 mg tablet,ex tended release 24 hr TAKE 1 TABLET BY MOUTH ONCE DAILY active Not Available Not Available No t Available doxycycli ne hyclate 100 mg capsule by mouth 07/18 completed Medicati on ID: [id number] D uration Value: 10 Brand Name: doxycycl ine hyclate Send Method: E-Prescr ibed Sub s Allowed: subs OK Speci al Instruct ion: Take 1 po BID X 10 days Med icationG enericNa me: doxycycl ine hyclate Not Available Not Available Not Available cetirizin e 10 mg tablet TAKE 1 TABLET BY MOUTH NIGHTLY active Not Available Not Available No t [...] topical cream 10/02 completed Medicati on ID: [id number] P raymond d By Name: COLLEEN [place] Name: Lotrison e Send Method: E-Prescr ibed Sub s Allowed: subs OK Speci al Instruct ion: apply to external ear tid X 2 weeks Me dication GenericN tank: Lotrison e Not Available Not Available Not Available hydrocodo ne 5 mg-acetam inophen 325 mg tablet 12/20 completed Medicati on ID: [id number] D uration Value: 5 Reason: () Brand Name: hydrocod one-acet aminophe n Send Method: E-Prescr ibed Sub s Allowed: subs OK Medic ationGen ericName : hydrocod one-acet aminophe n Not Available Not Available Not Available Zithromax Z-Danny 250 mg tablet Take 1 pack by mouth as directed 07/18 completed Medicati on ID: [id number] P darlenerichristine d By Name: Contreras Stern nd Name: Zithroma x Z-Danny Se nd Method: E-Prescr ibed Sub s Allowed: subs OK Medic ationGen ericName : Zithroma x Z-Danny Not Available Not Available Not Available acetamino phen 300 mg-codein e 30 mg tablet 01/02 completed Medicati on ID: 186 Dura tion Value: 3 Reason: () Bran d Name: acetamin ophen-co deine Se nd Method: E-Prescr ibed Sub s Allowed: subs OK Speci al Instruct ion: TAKE 1 TABLET BY MOUTH EVERY 4 HOURS Me dication GenericN tank: acetamin ophen-co deine Not Available Not Available Not Available ofloxacin 0.3 % ear drops 4 drops into right ear twice daily for 14 days. 07/18 completed Not Available Not Available Not Available famotidin e 20 mg tablet active Medicati on ID: [id number] B rand Name: famotidi ne Send Method: E-Prescr ibed Sub s Allowed: subs OK Medic ationGen ericName : famotidi ne Not Available Not Available Not Available lorazepam 0.5 mg tablet 03/06 completed Medicati on ID: [id number] D uration Value: 30 Brand Name: lorazepa [...] topical jelly 12/20 completed Medicati on ID: [id number] P rescribe d By Name: COLLEEN Mes[place] nd Name: K-Y Lubricat ing Send Method: E-Prescr ibed Sub s Allowed: subs OK Speci al Instruct ion: Apply to nose TID Medi cationGe nericNam e: K-Y Lubricat ing Not Available Not Available Not Available sulfaceta mide sodium 10 % eye drops 07/18 completed Medicati on ID: [id number] Du ration Value: 10 Prescri bed By Name: COLLEEN Mes[place] nd Name: sulfacet amide sodium S end Method: E-Prescr ibed Sub s Allowed: subs OK Speci al Instruct ion: 4 drops into left ear bid X 10 days Med icationG enericNa me: sulfacet amide sodium Not Available Not Available Not Available Bactroban 2 % topical ointment 07/18 completed Medicati on ID: [id number] Pr escribed By Name: COLLEEN Mes[place] nd Name: Bactroba n Send Method: E-Prescr ibed Sub s Allowed: subs OK Carl al Instruct ion: to be applied to the ear in office as directed Medicat ionGener icName: Bactroba n Not Available Not Available Not Available losartan 25 mg tablet 03/06 completed Medicati on ID: [id number] D uration Value: 90 Brand Name: losartan Send Method: E-Prescr ibed Sub s Allowed: subs OK Medic ationGen ericName : losartan Not Available Not Available Not Available clotrimaz ole 1 % topical solution 03/15 completed Medicati on ID: [id number] Pr escribed By Name: COLLEEN Mesa nd Name: clotriana Hernandez d Method: E-Prescr ibed Sub s Allowed: subs OK Carl al Instruct ion: 4 drops to affected ear three times a day X 14 days Med icationG enericNa me: clotrima zole Not Available Not Available Not Available pyridoxin e (vitamin B6) 50 mg tablet TAKE 2 TABLETS BY MOUTH ONCE DAILY active Not Available Not Available No t Available hydrocort isone 2.5 % topical cream 05/04 completed Medicati on ID: [id number] P rescribe d By Name: COLLEEN Mesa nd Name: hydrocor tisone S end Method: E-Prescr ibed Sub s Allowed: subs OK Carl al Instruct ion: Apply to the external [...] 1 mg tablet active Medicati on ID: [id number] B rand Name: lorazepa m Send Method: E-Prescr ibed Sub s Allowed: subs OK Medic ationGen ericName : lorazepa m Not Available Not Available Not Available Nasonex 50 mcg/actua tion [place] 2 spray into both nostrils 07/18 completed Medicati on ID: 418 Dura tion Value: [...] % topical cream APPLY CREAM TOPICALL Y TO AFFECTED AREA(S) TWICE DAILY NEEDED active Not Available Not Available No t Available tobramyci n 0.3 %-dexamet hasone 0.1 % eye drops,cami pension INSTILL 4 DROPS INTO AFFECTED EAR(S) BY OTIC ROUTE 2 TIMES PER DAY FOR 7 DAYS 2024 active Not Available Not Available Not Avai lable Saline Nasal 0.65 % spray aerosol 1 spray into both nostrils 07/18 completed Medicati on ID: [id number] Pr escribed By Name: COLLEEN Mesa nd [...] mg tablet 03/06 completed Medicati on ID: [id number] D uration Value: 90 Brand Name: Allergy Relief (loratad ine) Sen d Method: E-Prescr ibed Sub s Allowed: subs OK Speci al Instruct ion: TAKE 1 TABLET BY MOUTH ONCE DAILY Me dication GenericN tank: Allergy Relief (loratad ine) Not Available Not Available Not Available Cortispor in 1 % topical ointment 09/08 completed Medicati on ID: 65529 Pr escribed By Name: COLLEEN Mesa nd Name: Cortispo rin Send Method: E-Prescr ibed Sub s Allowed: subs OK Speci al Instruct ion: To have applied to ear in office as directed Medicat ionGener icName: Cortispo rin Not Available Not Available Not Available Zithromax TRI-DANNY 500 mg tablet 1 pack by mouth 07/18 completed Medicati on ID: [id number] D uration Value: 3 Prescri bed By Name: Contreras Stern nd Name: Zithroma x TRI-DANNY Send Method: E-Prescr ibed Sub s Allowed: subs OK Medic ationGen ericName : Zithroma x TRI-DANNY Not Available Not Available Not Available Symbicort 160 mcg-4.5 mcg/actua tion HFA aerosol inhaler 07/18 completed Medicati on ID: [id number] D uration Value: 30 Brand Name: Symbicor t Send Method: E-Prescr ibed Sub s Allowed: subs OK Medic ationGen ericName : Symbicor t Not Available Not Available Not Available Vitamin D3 50 mcg (2,000 unit) capsule active Medicati on ID: [id number] B rand Name: Vitamin D3 Send Method: [...] Available Not Available Vitals Date Recorded Body height Provider Name an d Address Organization Details Last Updated DateTime 07/18/2024 160.02 cm Bhumi Castaneda [facility] 07/18/2024 09:26:57 Date Recorded Body weight Body mass index (BMI) Body height Provider Name and Address Organization Details Last Updated DateTime 01/08/2024 24248.37 g 33.3 kg/m2 160.02 cm Kwan Moran [facility] 01/08/2024 09:09:31 Social History None recorded. Functional Status None recorded. Mental Status None recorded. Family History Nothing Reported. Medical History Condition Response Anxiety Y Depression Y Asthma Y Gynecological HistoryNo gynecological history recorded. Obstetrics History GPAL:G 0 P 0 0 0 0 Past Encounters Encounter ID Performer Location Encounter Start Date Encounter Closed Date Diagnosis/Indication Diagnosis SNOMED-CT Code Diagnosis ICD10 Code Diagnosis Note [id number] MODESTO MCMILLAN MD [facility] [address] [address] 01/08/2024 08:59:51 01/08/2024 09:25:15 Bilateral perforation of tympanic membranes 3623136559 198647 H72.93 Chronic mastoiditis 8064 5004 H70.13 Finding of device of ear 923250713 Z96.29 Otorrhea of right ear 10 68134804 919250 H92.11 Total perf oration of bilateral tympanic membranes 7468450732 874411 H72.823 [id number] PARISH ZAMORANO MD [facility] [address] [address] 07/18/2024 08:59:15 07/18/2024 11:15:03 Bilateral perforation of tympanic membranes 5663188164 274990 H72.823 Finding of device of ear 105950097 Z96.29 Both [employer] sites appear healthy and well-yoselin ated. Recommend use of soft bristle toothbrush to help prevent crust accumulati on. Audiometri c testing was updated today. We will set her up for a visit with audiology to ensure that her devices are set to match her current level of hearing loss. They will also be able to help her troublesho ot the technologi maurice options that may help her in a variety of different listening environmen ts. Postmastoi dectomy complication 14088195 H95.192 Mixed cond uctive and sensorineural hearing loss, bilateral 292880104 H90.6 Audiologic al evaluation results:[facility] ear:{{Norm al sloping Mi ld Moderat e* Moderat rigoberto-severe Severe Pr ofound Nor mal auditory thresholds }} to {{mild mod erate mode rately-sev ere severe profound* with}} {{sensorin eural hearing loss with condu ctive hearing loss with mixed hearing loss with*}} {{excellen t good* fa ir poor no t measurable }} word recognitio n.Left ear:{{Norm al sloping Mi ld Moderat e* Moderat rigoberto-severe Severe Pr ofound Nor mal auditory thresholds }} to {{mild mod erate mode rately-sev ere severe profound* with}} {{sensorin eural hearing loss with condu ctive hearing loss with mixed hearing loss with*}} {{excellen t good fahad r* poor no t measurable }} word recognitio n.Tympanom etry:Right Ear:{{Type A* Type As Type Ad Type C Type C, shallow & rounded Ty pe B Type B with large volume Cou ld not maintain a hermetic seal}}Left Ear:{{Type A* Type As Type Ad Type C Type C, shallow & rounded Ty pe B Type B with large volume Cou ld not maintain a hermetic seal}} [id number] ISSAC BELCHER [facility] [address] [place] [address] 07/18/2024 10:09:42 07/18/2024 16:47:10 Mixed conductive and sensorineural hearing loss, bilateral 649216154 H90.6 Audiologic al evaluation results:[facility] ear:{{Norm al sloping Mi ld Moderat e* Moderat rigoberto-severe Severe Pr ofound Nor mal auditory thresholds }} to {{mild mod erate mode rately-sev ere severe profound* with}} {{sensorin eural hearing loss with condu ctive hearing loss with mixed hearing loss with*}} {{excellen t good* fa ir poor no t measurable }} word recognitio n.Left ear:{{Norm al sloping Mi ld Moderat e* Moderat rigoberto-severe Severe Pr ofound Nor mal auditory thresholds }} to {{mild mod erate mode rately-sev ere severe profound* with}} {{sensorin eural hearing loss with condu ctive hearing loss with mixed hearing loss with*}} {{excellen t good fahad r* poor no t measurable }} word recognitio n.Tympanom etry:Right Ear:{{Type A* Type As Type Ad Type C Type C, shallow & rounded Ty pe B Type B with large volume Cou ld not maintain a hermetic seal}}Left Ear:{{Type A* Type As Type Ad Type C Type C, shallow & rounded Ty pe B Type B with large volume Cou ld not maintain a hermetic seal}} Health Concerns Section Related Observation LastModified by Organization Detai ls LastModified Time None Recorded Concern Status LastModified by Organization Details LastModified Time None Recorded Advance Directives Directive None Recorded Payers Encounter Date Sequence Insurance Name Policy Number Policy Walsh Covered Member ID Walsh Member ID Guarantor Name 01/08/2024 1 [place] [employer] Camila A Truong [id number] Camila A [place] 01/08/2024 2 [place] [facility] Camila A [place] [id number] Camila A [place] 07/18/2024 1 [place] [employer] Camila A [place] [id number] Camila A [place] 07/18/2024 2 [place] Camila A [place] [id number] Camila A [place] 07/18/2024 1 [place] [employer] Camila A Tru[place] [id number] Camila A [place] 07/18/2024 2 [place] Camila A [place] [id number] Camila A [place] Notes Date Note Type Note Provider Name and Address Organization Details Recorded Time 01/08/2024 text/html 58-year-old jose galvez with bilateral mastoid cavity presents for evaluation of otorrhea. She has been having yellow drainage from both sides and want her ears checked. MODESTO MCMILLAN MD [address] [place] [address], [place], [address], [facility] - [facility] 01/08/2024 09:47:00 07/18/2024 text/html 58-year-old fema le with left canal wall down mastoidectomy cavity and bilateral total tympanic membrane perforations. She has bilateral [employer] implants.. She laments that she does not think she is hearing as well as she was in the past. It has been a couple of years since she has met with audiology.She comes in today for debridement. Last visit back in January she had bilateral otorrhea, treated with Floxin drops. Patient called in June reporting recurrent otorrhea. Recommended use of TobraDex drops she had at home. No current discharge. Occasional achiness. PARISH ZAMORANO MD [address], [address], [facility] 07/18/2024 11:16:11 07/18/2024 text/html Audiological Evaluation HPIReported bypatient.Hearing loss perceived:hearing loss in both ears: left ear worse; longstanding (years) ISSAC BELCHER [address] [address], [place], [address], [facility] - [facility] 07/18/2024 10:34:28 OBGyn Episode No OBEpisode recorded.
--- OUTSIDE RECORDS SUMMARY | 2024-07-28 15:36 | XMS_ITS | Encounter Summary ---
Author Organization [facility] Address [facility] 200 [place] [address] Phone Care Team Providers Care Legal Billing Clerk Name Role Phone Jamila Adair MD Primary Care Provider +1- [phone] Encounter Details Date Type Department Care Team (Late st Contact Info) Description 09/15/2023 Office Communication [facility] 200 [place] [phone] Arlyn Spangler ARNP [address] [phone] Social History Tobacco Use Types Packs/Day Years [...] Visit [facility] 0664 [facility] 204 [place] [address] Arlyn Spangler ARNP [address] [address] documented as of this encounter Visit Diagnoses Not on filedocumented in this encounter Care Teams Legal Billing Clerk Relationship Specialty Start Date End Date Jamila Adair MD 75 [facility] 1 [place] [phone] PCP - General Internal Medicine 09/22/23 documented as of this encounter
--- OUTSIDE RECORDS SUMMARY | 2024-07-28 15:36 | XMS_ITS | Encounter Summary ---
Author Organization [facility] Address 100 [facility] 200 [place] [address] Phone Care Team Providers Care Accelerator Operator Name Role Phone Jamila Adair MD Primary Care Provider +1- [phone] Reason for Visit * Reason Comments Med Refill Encounter Details Date Type Department Care Team (Late st Contact Info) Description 05/17/2024 Refill [facility] 100 [facility] 200 [place] [phone] Alberto Quigley MD [address] [address] Chronic kidney disease, stage 2 (mild); Hypertension; Persistent hematuria; Chronic glomerulonephritis Social History Tobacco Use Types Packs/Day Years [...] Visit [facility] P.CB[facility] [address] [address] Arlyn Spangler ARNP [address] [address] documented as of this encounter Visit Diagnoses Diagnosis Chronic kidney disease, stage 2 (mild) Hypertension Persistent hematuria Chronic glomerulonephritis documented in this encounter Care Teams Accelerator Operator Relationship Specialty Start Date End Date Jamila Adair MD 75 [facility] 1 [place] [address] PCP - General Internal Medicine 09/22/23 documented as of this encounter
--- OUTSIDE RECORDS SUMMARY | 2024-07-28 15:36 | XMS_ITS | Encounter Summary ---
Author Organization [facility] Address 100 [address] [facility] [address] [place] [address] Phone Care Team Providers Care Almond Pan Finisher Name Role Phone Jamila Adair MD Primary Care Provider +1- [phone] Encounter Details Date Type Department Care Team (Late st Contact Info) Description 09/03/2022 Telephone [facility] 100 [facility] [facility] 200 [place] [address] Arlyn Parker Social History Tobacco Use Types Packs/Day Years [...] encounter Miscellaneous Notes * Telephone Encounter - Arlyn Parker - 09/03/2022 3:21 PM EDT PT says that she needs to talk to you about the BP monitor, a watch she recently purchased, and hernew diet she started. documented in this encounter Plan of Treatment Upcoming Encounters Date Type Department Care Team (Late st Contact Info) Description 07/13/2025 3:30 PM EDT Office Visit [facility] [address] [facility] 204 [place] [phone] Arlyn Spangler ARNP [address] [facility] 204 [place] [address] documented as of this encounter Visit Diagnoses Not on filedocumented in this encounter Care Teams Almond Pan Finisher Relationship Specialty Start Date End Date Jamila Adair MD 75 [facility] 1 [place] [address] PCP - General Internal Medicine 09/22/23 documented as of this encounter
== END 2024-07-28 13:15 | disposition home or self-care (01) ==
LOC: HO.SH 13:14
PROVIDERS: Visit Provider Internal Medicine
DX: Z46.1 Encounter for fitting and adjustment of hearing aid (principal); H90.3 Sensorineural hearing loss, bilateral
CPT/HCPCS: V5266

== ENCOUNTER 2024-09-29 11:44 | Outpatient (REF) | payer MEDICARE, MEDICAID, SELFPAY ==
--- OUTSIDE RECORDS SUMMARY | 2024-09-29 14:10 | XMS_ITS | Encounter Summary ---
Author Organization [facility] Address 100 [facility] 200 [place] [address] Phone Care Team Providers Care Pediatric Acute Care Unit Nurse Name Role Phone Jamila Adair MD Primary Care Provider [phone]- [phone] Reason for Visit * Reason Comments Med Refill Encounter Details Date Type Department Care Team (Late st Contact Info) Description 07/12/2023 Refill [facility] 200 [place] [address] Juanjo Jean MD [address] [address] Social History Tobacco Use Types Packs/Day [...] Visit [facility] P[facility] 4000 [facility] 204 [place] [address] Arlyn Spangler ARNP 3550 [facility] 204 [place] [address] documented as of this encounter Visit Diagnoses Not on filedocumented in this encounter Care Teams Pediatric Acute Care Unit Nurse Relationship Specialty Start Date End Date Jamila Adair MD 75 [facility] 1 [place] [address] PCP - General Internal Medicine 09/22/23 documented as of this encounter
== END 2024-09-29 11:45 | disposition home or self-care (01) ==
LOC: HO.SH 11:44
PROVIDERS: Visit Provider Internal Medicine
DX: H90.3 Sensorineural hearing loss, bilateral (principal)
CPT/HCPCS: V5266

== ENCOUNTER 2024-12-30 11:40 | Outpatient (REF) | payer MEDICARE, MEDICAID, SELFPAY ==
--- OUTSIDE RECORDS SUMMARY | 2024-12-30 13:36 | XMS_ITS | Encounter Summary ---
Author Organization [facility] Address 100 [facility] 200 [place] [address] Phone Care Team Providers Care Furniture Manager Name Role Phone Jamila Adair MD Primary Care Provider [phone]- [phone] Encounter Details Date Type Department Care Team (Late Contact Info) Description 12/17/2021 Telephone [facility] 200 [place] [address] [place] MD [address] [place] [phone] Social History Tobacco Use Types Packs/Day Years [...] Visit [facility] [address] [facility] 204 [place] [address] Arlyn Spangler ARNP 3550 [facility] 204 [place] [address] documented as of this encounter Visit Diagnoses Not on filedocumented in this encounter Care Teams Furniture Manager Relationship Specialty Start Date End Date Jamila Adair MD 75 [facility] 1 [place] [address] PCP - General Internal Medicine 09/22/23 documented as of this encounter
--- OUTSIDE RECORDS SUMMARY | 2024-12-30 13:36 | XMS_ITS | Encounter Summary ---
Author Organization [facility] [place] Address [address] [facility] 200 [place] [address] Phone Care Team Providers Care Final Armature Tester Name Role Phone Jamila Adair MD Primary Care Provider +1- [phone] Encounter Details Date Type Department Care Team (Late st Contact Info) Description 09/15/2023 Office Communication [facility] [address] [address] 200 [place] [phone] Arlyn Spangler ARNP [address] [phone] Social History Tobacco Use Types Packs/Day Years [...] and [facility] the [facility] P.CB[facility] 1660 [facility] 204 [place] [address] Arlyn Spangler ARNP [address] [address] documented as of this encounter Visit Diagnoses Not on filedocumented in this encounter Care Teams Final Armature Tester Relationship Specialty Start Date End Date Jamila Adair MD 75 [facility] 1 [place] [phone] PCP - General Internal Medicine 09/22/23 documented as of this encounter
--- OUTSIDE RECORDS SUMMARY | 2024-12-30 13:36 | XMS_ITS | Clinical Summary ---
Author Organization [facility]. Address 3550 [facility] 204 [place] [address] Phone Care Team Providers Care Financial Planning Adviser Name Role Phone Jamila Adair MD Primary Care Provider +1- [phone] Allergies Active Allergy Reactions Criticality Noted Date [...] mg total) in the evening. 180 tablet 12/11/19 23 Active pyridoxine (B-6) 50 MG tablet Take 2 tablets (100 mg total) by mouth 1 (one) time each day 180 tablet 3 04/15/19 24 Active oxybutynin XL (DITROPAN-XL) 15 MG 24 hr tabletIndications:Cloth Wire Weaver kavita kidney disease, stage 2 (mild),Hypertension,Pe rsistent hematuria,Chronic glomerulonephritis Take 1 tablet (15 mg total) by mouth 1 (one) time each day 90 tablet 07/23/19 24 Active albuterol HFA (Ventolin HFA) 108 (90 Base) MCG/ACT inhalerIndications:Unc omplicated mild intermittent asthma, not otherwise specified Inhale 2 puffs every 4 (four) hours if needed for wheezing 18 g 1 08/20/19 24 Active cetirizine (ZyrTEC) 10 MG tablet Take 10 mg by mouth at bed time Active losartan (COZAAR) 50 MG tabletIndications:Cloth Wire Weaver kavita kidney disease, stage 2 (mild),Hypertension Take 1 tablet (50 mg total) by mouth 1 (one) time each day 90 tablet 3 07/15/19 25 026 Active Vitamin D, Cholecalciferol, 25 MCG (1000 UT) tabletIndications:Alison min D deficiency, not otherwise specified Take 1 tablet by mouth 1 (one) time each day 90 tablet 1 11/17/19 25 026 Active Active Problems Problem Noted Date Diagnosed Date Vitamin D deficiency, not otherwise specified Hypercalcemia 09/22/2023 Chronic glomerulonephritis 01/31/2021 Chronic pelvic pain of female 01/31/2021 Hyperparathyroidism 01/31/2021 Persistent hematuria 01/31/2021 Chronic kidney disease, stage 2 (mild) Hypertension 06/27/2020 Encounters Date Type Department Care Team Description 11/16/2024 Orders Only [facility] 3550 [facility] 204 [place] [address] Arlyn Spangler ARNP Vitamin D deficiency, not otherwise specified 11/16/2024 Refill [facility] 100 [facility] [facility] 200 [place] [address] Arlyn Spangler ARNP Vitamin D deficiency, not otherwise specified from Last 3 Months Family History Medical [...] Office Visit [facility] P.CBety [address] [address] Arlyn Spangler ARNP [address] [address] Health Maintenance Due Date Last Done Comments Breast Cancer Screening 1967 Hepatitis B Vaccine (1 of 3 - 19+ 3-dose series) 1986 Pneumococcal Vaccine: 50+ Ye ars (3 of 3 - PCV) 05/25/2015 05/25/2014, 05/07/2014, 12/12/2011 Colorectal Cancer Screening: Annual FOBT 2016 Colorectal Cancer Screening: Colonoscopy 2016 Colorectal Cancer Screening: Sigmoidoscopy 2016 Influenza Vaccine (#1) 2024 03/12/2022, 2014 Pneumococcal Vaccine: Peds ( 0 to 5 Years) and At-Risk Patients (6 to 49 Years) Discontinued 05/25/2014, 05/07/2014, 12/12/2011 Insurance Medicaid [place] Medicare Medicaid [place] Medicare Care Teams Financial Planning Adviser Relationship Specialty Start Date End Date Jamila Adair MD [address] [address] PCP - General Internal Medicine 09/22/23
--- OUTSIDE RECORDS SUMMARY | 2024-12-30 13:36 | XMS_ITS | Encounter Summary ---
Author Organization [facility] Address 100 [address] [facility] 200 [place] [address] Phone Care Team Providers Care Printing Machinist Name Role Phone Jamila Adair MD Primary Care Provider [phone]- [phone] Reason for Visit * Reason Comments Med Refill Encounter Details Date Type Department Care Team (Late st Contact Info) Description 05/17/2024 Refill [facility] 100 [facility] 200 [place] [phone] Alberto Quigley MD [address] [address] Chronic kidney disease, stage 2 [...] Visit [facility] P.CBety [address] [address] Arlyn Spangler ARNP [address] [address] documented as of this encounter Visit Diagnoses Diagnosis Chronic kidney disease, stage 2 (mild) Hypertension Persistent hematuria Chronic glomerulonephritis documented in this encounter Care Teams Printing Machinist Relationship Specialty Start Date End Date Jamila Adair MD 75 [facility] 1 [place] [address] PCP - General Internal Medicine 09/22/23 documented as of this encounter
--- OUTSIDE RECORDS SUMMARY | 2024-12-30 13:36 | XMS_ITS | Encounter Summary ---
Author Organization [facility] [place] Address 100 [address] [facility] 200 [place] [address] Phone Care Team Providers Care Architectural Project Manager Name Role Phone Jamila Adair MD Primary Care Provider [phone]- [phone] Reason for Visit * Reason Comments Med Refill Encounter Details Date Type Department Care Team (Late st Contact Info) Description 07/12/2023 Refill [facility] 100 [facility] 200 [place] [address] Juanjo Jean MD [address] [address] Social History Tobacco Use Types [...] Visit [facility] P.CBety 8700 [facility] 204 [place] [address] Arlyn Spangler ARNP 3550 [facility] 204 [place] [address] documented as of this encounter Visit Diagnoses Not on filedocumented in this encounter Care Teams Architectural Project Manager Relationship Specialty Start Date End Date Jamila Adair MD 75 [facility] 1 [place] [address] PCP - General Internal Medicine 09/22/23 documented as of this encounter
--- OUTSIDE RECORDS SUMMARY | 2024-12-30 13:37 | XMS_ITS | Clinical Summary ---
Author Organization [facility] Address [address] [address] Phone Care Team Providers Care Gem Carver Name Role Phone Sukhjinder Oconnell MD Primary Care Provider Unavailable Allergies Active Allergy Reactions Criticality Noted Date Comments Adhesive Tape-Silicones 06/27/2020 Aspirin 06/27/2020 Other reaction(s): Other (see comments) Beclomethasone Other (See Comments) 06/27/2020 Ciprofloxacin 06/27/2020 Other reaction(s): ? reaction Clindamycin 06/27/2020 Other reaction(s): Other (see comments) Fluoxetine 06/27/2020 Other reaction(s): mental status changes Ibuprofen 12/29/2008 Other reaction(s): i feel out of my head Latex Rash Low 06/27/2020 Naproxen Sodium 12/25/2021 Oxycodone-Acetaminophen Itching 06/27/2020 Penicillin G 06/27/2020 Ropinirole 06/27/2020 Other reaction(s): Other (see comments) Medications albuterol 90 mcg/actuation inhaler Inhale 2 puffs into the lungs. 07/23/2020 Active budesonide-formo terol (SYMBICORT) 160-4.5 mcg/actuation inhaler Inhale 2 puffs into the lungs. 02/08/2021 Active estradioL (ESTRACE) 0.01 % (0.1 mg/gram) vaginal cream Place 1 g vaginally. 02/07/2021 Active famotidine (PEPCID) 20 MG tablet 12/06/2021 Active losartan (COZAAR) 50 MG tablet Take 50 mg by mouth. 12/05/2021 Active oxybutynin (DITROPAN XL) 15 MG 24 hr tablet Take 15 mg by mouth daily. 10/25/2021 Active pyridoxine, vitamin B6, (B-6) 50 MG tablet Take 100 mg by mouth daily. 11/28/2021 Active tobramycin-dexam ethasone (TOBRADEX) ophthalmic suspension prn 10/14/2021 Active Active Problems Problem Noted Date Diagnosed Date Other chest pain 12/25/2021 Assessment & Plan (12/25/2021 5:00 PM EDT): She had few episodes of chest pain. She was seen twice in the emergency room last month. More time she was ruled out and sent home. A CT chest angio ruled out PE and aortic dissection. CAD risk factors include age hypertension, obesity. Status is not known. At this point we will proceed to an ETT because her electrocardiogram does not show much ST-T wave changes. Also do an echocardiogram to see any LV wall motion. Advised to go to the emergency room in case the pain returns and is worse. Essential hypertension 12/25/2021 Assessment & Plan (12/25/2021 5:01 PM EDT): Her blood pressure today is controlled at 126/80. She is on losartan 50 mg p.o. daily. Does not complain of any side effects. She should get a renal profile and electrolytes through her PCP office and continue losartan at this point. Plan an echocardiography to see the left ventricular hypertrophy pattern. Obesity (BMI 30-39.9) 12/25/2021 Assessment & Plan (12/25/2021 5:03 PM EDT): Her weight is 92.1 kg with body mass index of 37.74 kg per metered square. I emphasized the need for her to work on diet and an exercise program. She should see a dietitian but I try to explain to her to reduce the calories she has to reduce her carbohydrates. Suggest that she talks to her PCP about a diet diet consult. 30- minute daily exercise for 5 days is also advisable after her stress test is done. Hyperlipemia, mixed 12/25/2021 Assessment & Plan (12/25/2021 5:04 PM EDT): Not sure about her lipid status. Morbidly obese has hypertension so we should proceed with a lipid profile. Went on the treatment after the lipid profile is back. Social History Tobacco Use Types Packs/Day Years Used Date Smoking Tobacco: Never Smokeless Tobacco: Never Alcohol Use Standard Drinks/Week Comments Not Currently 0 (1 standard drink = 0.6 oz pur e alcohol) Education Answer Date Recorded Are you interested in more education? Not on alvaro e 08/02/2022 Are you concerned about learning? Not on file 08/02/2022 No 08/02/2022 No 08/02/2022 Digital Access Answer Date Recorded No 08/26/2022 No 08/26/2022 No 08/26/2022 Reliable internet access at home? Not on file 08/26/2022 Device with a working camera? Not on file Comments Unknown Sex and Gender Information Value Date Recorded Sex Assigned at Not on file Legal Sex Female 8:26 AM EDT Gender Identity Not on file Sexual Orientation Not on file Last Filed Vital Signs Vital Sign Reading Time Taken Comments Blood Pressure 124/70 01/22/2022 2:44 PM EDT Pulse 91 12/25/2021 3:44 PM EDT Temperature - - Respiratory Rate - - Oxygen Saturation 95% 01/22/2022 2:00 PM EDT Inhaled Oxygen Concentration - - Weight 92.1 kg (203 lb) 12/25/2021 3:44 PM EDT Height 156.2 cm (5' 1.5 ) 12/25/2021 3:44 PM EDT Body Mass Index 37.74 12/25/2021 3:44 PM EDT Plan of Treatment Health Maintenance Due Date Last Done Comments BLOOD PRESSURE 1967 LIPID PANEL 1967 DEPRESSION SCREENING 1979 HEPATITIS C SCREENING 1985 HIV ONE-TIME SCREENING (18-6 5 YEARS) 1985 PAP SMEAR 1988 MAMMOGRAM 2007 COLOGUARD 2012 COLONOSCOPY 2012 COLORECTAL CANCER SCREENING 2012 FIT TEST 2012 FOBT 2012 SIGMOIDOSCOPY 2012 VIRTUAL COLONOSCOPY 2012 PNEUMOCOCCAL VACCINES (50+ years) (2 of 2 - PCV) 2017 05/25/2014, 05/07/2014, 12/12/2011 ZOSTER VACCINES (1 of 2) 2017 Adult Td,Tdap Booster 12/15/2022 12/15/2012 INFLUENZA VACCINE (#1) 2024 , 01/01/2015, 12/30/2008 COVID-19 VACCINE (2024-2 6 season) 2024 06/07/2020 SMOKING STATUS SCREENING (On ce After 26 Yrs) Completed 12/25/2021 HEPATITIS A VACCINES Aged Out No long er eligible based on patient's age to complete this topic HIB VACCINES Aged Out No longer eligi ble based on patient's age to complete this topic MENINGOCOCCAL VACCINES (ACWY) Aged Out No longer eligible based on patient's age to complete this topic MENINGOCOCCAL VACCINES (B) Aged Out N o longer eligible based on patient's age to complete this topic Medical Devices Not on file Insurance MEDICARE PART A & B [facility] MEDICARE PART A & [place] & B HEALTH MEDICARE PART A & [place] PART [place] & [place] MEDICARE PART A & [place] & [place] MEDICARE PART A & [place] Care Teams Gem Carver Relationship Specialty Start Date End Date Sukhjinder Oconnell MD PCP - General Internal Medicine 12/25/21 Additional Source Comments The information contained in this document represents components of the legal health record. It is not the complete legal health record.[facility]
--- OUTSIDE RECORDS SUMMARY | 2024-12-30 13:37 | XMS_ITS | Data Portability ---
Author Organization [place] - [facility], Allergy Address [address] [address] Care Team Providers Care Sweeper Cleaner Industrial Name Role Phone ALEXACHAPIN Primary Care Provider [...] in 6 months for routine mastoid debridement. [email or web address] Not available 01/08/2024 09:35:35 07/18/2024 07/18/2024 Follow [...] may be fine coming every 6 months. [email or web address] Not available 07/18/2024 11:15:58 11/21/2024 11/21/2024 59-year-old female presents for mastoid debridement. On the right side she has a large extended atticotomy which is free of debris or otorrhea. Total TM perforation which is dry. Left canal wall down mastoidectomy free of debris or otorrhea. She will continue dry ear precaution and follow-up in 4 months. All questions were answered. [email or web address] Not available 11/21/2024 11:27:56 Plan of Treatment Reminders Order Date Submit Date Provider Last Modified By Organization Details Last Modified Time Details Appointments Establish ed 15 2024 09:45A M ADAN CASTANEDA PA-C Not available Not available Not available Lab None recorded. Referral None recorded. Procedures None recorded. Surgeries None recorded. Imaging None recorded. Medication Orders tobramyci n 0.3 %-dexamet hasone 0.1 % eye drops,cami pension 2024 025 [facility] [address] [place] [address], [id number], 07/18/2024 10:05:08 ofloxacin 0.3 % ear drops 2023 025 [facility] [address], [address] [place] [address], [id number], 07/18/2024 09:27:56 Patient TargetsNo targets recorded. Patient [...] Name and Address Organization Details Recorded Time Perforat ion of tympanic membrane 37064601 Active 2013 Perforat ion of tympanic membrane , unspecif ied; Location : bilatera l Condit ion: stable N ote: Date Diagnose d: 4 3:07 PM (384.20) Not Available [facility] 02:13:34 Otorrhea 69328232 Active 2014 Otorrhea ; Note: Date Diagnose d: 06/05/2014 10:29 AM (388.60) Not Available [facility] 4 02:14:31 Chronic mastoidi tis 61329337 Active 2014 Chronic mastoidi tis; Note: Date Diagnose d: 5 10:59 AM (383.1) Not Available [facility] 4 02:13:07 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; Note: Date Diagnose d: 11/07/2014 11:50 AM (383.33) Not Available [facility] 4 02:13:51 Candidal otitis externa 39609572 Active 2014 Otomycos is; Note: Date Diagnose d: 5 3:09 PM (112.82) Not Available [facility] 4 02:14:19 Postmast oidectom y complica tion 70044513 Active 2014 Other disorder s followin g mastoide ctomy, left ear; Note: Date Diagnose d: 03/15/20 15 1:38 PM (H95.192 ) Not Available [facility] 4 02:13:31 Bilatera l perforat ion of tympanic membrane s 50905644782 24417 Active 2014 Unspecif ied perforat ion of tympanic membrane , bilatera l; Note: Date Diagnose d: 03/15/20 15 1:38 PM (H72.93) [mapped from ICD9 code: 384.20] Not Available [facility] 4 02:14:04 Superfic ial mycosis 617296307 Completed 201611/06/2023 Other specifie d superfic ial mycoses; Note: Date Diagnose d: 7 2:12 PM (B36.8) Not Available [facility] 4 02:13:15 Marginal perforat ion of tympanic membrane 19673600 Active 2016 Other marginal perforat ions of tympanic membrane , left ear; Note: Date Diagnose d: 12/09/2016 2:59 PM (H72.2X2 ) Not Available [facility] 4 02:14:07 Acute lymphade nitis 79288759 Active 2016 Acute lymphade nitis, unspecif ied; Note: Date Diagnose d: 12/09/2016 2:58 PM (L04.9) Not Available [facility] 4 02:14:12 Total perforat ion of right tympanic membrane 48775397853 78326 Active 2016 Total perforat ions of tympanic membrane , right ear; Note: Date Diagnose d: 12/09/2016 2:58 PM (H72.821 ) Not Available [facility] 4 02:13:39 Pain of left temporom andibula r joint 47636496562 055599 Active 2016 Arthralg ia of left temporom andibula r joint; Note: Date Diagnose d: 12/09/2016 3:00 PM (M26.622 ) Not Available [facility] 4 02:13:11 Otorrhea of bilatera l ears 77144042001 62974 Active 2017 Otorrhea , bilatera l; Note: Date Diagnose d: 8 3:55 PM (H92.13) Not Available [facility] 4 02:14:18 Acute sinusiti s 57695602 Completed 201811/06/2023 Other acute sinusiti s; Note: Date Diagnose d: 9 3:44 PM (J01.80) Not Available [facility] 4 02:13:51 Mixed conducti ve and sensorin eural hearing loss, bilatera l 125119166 Active 2018 Hearing loss: Mixed hearing loss, bilatera l; [facility] : [facility] l Condit ion: stable N ote: Date [...] : 03/15/20 15 Not Available [facility] 4 02:14:19 Otorrhea of left ear 61418877327 66711 Active 2019 Otorrhea , left ear; Note: Date Diagnose d: 08/11/2019 2:23 PM (H92.12) Not Available [facility] 4 02:14:15 Impacted cerumen in right ear 84655161284 06842 Active 2019 Impacted cerumen, right ear; Note: Date Diagnose d: 0 4:17 PM (H61.21) Impact ed cerumen, right ear; Note: Date Diagnose d: 0 9:18 AM (H61.21) ; Start Date : 07/29/19 Not Available [facility] 4 02:13:38 Benign paroxysm al position al vertigo 098632560 Active 2020 Benign paroxysm al vertigo, right ear; Note: Date Diagnose d: 1 3:57 PM (H81.11) Not Available [facility] 4 02:14:42 Total perforat ion of bilatera l tympanic membrane s 57695772489 94195 Active 2020 Total perforat ions of tympanic membrane , bilatera l; Note: Date Diagnose d: 1 3:58 PM (H72.823 ) Not Available [facility] 4 02:13:15 Acute frontal sinusiti s 96495334 Completed 202211/06/2023 Acute recurren t frontal sinusiti s; Note: Date Diagnose d: 11/04/2022 4:04 PM (J01.11) Not Available [facility] 4 02:13:04 Otorrhea of right ear 45457107590 77241 Active 2022 Otorrhea , right ear; Note: Date Diagnose d: 11/04/2022 4:04 PM (H92.11) Not Available [facility] 4 02:13:52 Finding of device of ear 046776267 Active 2022 Presence of bone-con duction hearing device; Note: Date Diagnose d: 12/11/2022 5:42 PM (Z96.29) Not Available [facility] 4 02:12:51 Sensorin eural hearing loss of bilatera l ears 990094726 Active 2024 ISSAC BELCHER [address] [facility],[place] [address], [place], [address] , [facility] 5 10:09:53 Problem Notes None recorded. Procedures Surgical History Date Name Laterality Status Provider Name and Address Organization Details Recorded Time 5 Comp Audio with Tymps - 48334 & 27139 completed ISSAC BELCHER [address] [facility],[place] [address], [place], [address], [facility] - [facility] 07/18/2024 10:09:52 5 Debridement of Mastoid Cavity left completed PARISH ZAMORANO MD [address] [facility],[place] [address], [place], [address], [facility] 07/18/2024 10:02:11 4 Debridement of Mastoid Cavity bilat completed ADAN CASTANEDA PA-C [address] [facility],[place] [address], [place], [address], [facility] 01/08/2024 09:33:33 Imaging Results None recorded. Procedure Notes None recorded. Medical Equipment None Reported. Allergies Allergen ID Allergen Name Allergen Category Reaction Reaction Severity Criticality Documentation Date Start Date Code Code System Note Provider Name and Address Organization Details Recorded Time 10241 clindamyc in hydrochlo ride medicatio n other Not available Not available 08/18/2023 31174 RxNorm React ion: unkno wn, unspe cifie d;; Not Available [facility] 4 00:49:57 06078 ibuprofen medicatio n other Not available Not available 08/18/2023 5640 RxNorm React ion: unkno wn, unspe cifie d;; Not Available [facility] 4 00:50:08 01113 latex environme nt,medica tion other Not available Not available 08/18/2023 54164 91 RxNorm React ion: unkno wn, unspe cifie d;; Not Available [facility] 4 00:50:09 14206 oxycodone medicatio n other Not available Not available 08/18/2023 7804 RxNorm React ion: unkno wn, unspe cifie d;; Not Available [facility] 4 00:50:10 49563 ciproflox acin hydrochlo ride medicatio n other Not available Not available 08/18/2023 15828 RxNorm React ion: unkno wn, unspe cifie d;; Not Available [facility] 4 00:50:22 23021 fluoxetin e medicatio n other Not available Not available 08/18/2023 4493 RxNorm React ion: unkno wn, unspe cifie d;; Not Available [facility] 4 00:24:17 79140 acetamino phen medicatio n other Not available Not available 08/18/2023 161 RxNorm React ion: unkno wn, unspe cifie d;; Not Available [facility] 4 00:50:40 53860 penicilli n V potassium medicatio n other Not available Not available 08/18/2023 85867 5 RxNorm React ion: unkno wn, unspe cifie d;; Not Available [facility] 4 00:50:41 Medications Name Sig Start Date [...] by mouth 07/18 completed Medicati on ID: 112712 D uration Value: 10 Brand Name: doxycycl [...] topical cream 10/02 completed Medicati on ID: 210577 P rescribe d By Name: COLLEEN Mes[place] nd Name: Lotrison e Send Method: E-Prescr ibed Sub s Allowed: subs OK Speci al Instruct ion: apply to external ear tid X 2 weeks Me dication GenericN tank: Lotrison e Not Available Not Available Not Available hydrocodo ne 5 mg-acetam inophen 325 mg tablet 12/20 completed Medicati on ID: 004523 D uration Value: 5 Reason: () Brand Name: hydrocod one-acet aminophe n Send Method: E-Prescr ibed Sub s Allowed: subs OK Medic ationGen ericName : hydrocod one-acet aminophe n Not Available Not Available Not Available Zithromax Z-Danny 250 mg tablet Take 1 pack by mouth as directed 07/18 completed Medicati on ID: 974061 P rescribe d By Name: Contreras Stern [...] 20 mg tablet active Medicati on ID: 812681 B rand Name: famotidi ne Send Method: E-Prescr ibed Sub s Allowed: subs OK Medic ationGen ericName : famotidi ne Not Available Not Available Not Available lorazepam 0.5 mg tablet 03/06 completed Medicati on ID: 576840 D uration Value: 30 Brand Name: lorazepa [...] topical jelly 12/20 completed Medicati on ID: 414483 P rescribe d By Name: COLLEEN Mes[place] nd Name: K-Y Lubricat ing Send Method: E-Prescr ibed Sub s Allowed: subs OK Speci al Instruct ion: Apply to nose TID Medi cationGe nericNam e: K-Y Lubricat ing Not Available Not Available Not Available sulfaceta mide sodium 10 % eye drops 07/18 completed Medicati on ID: 87395 Du ration Value: 10 Prescri bed By Name: COLLEEN Mes[place] nd Name: sulfacet amide sodium S end Method: E-Prescr ibed Sub s Allowed: subs OK Speci al Instruct ion: 4 drops into left ear bid X 10 days Med icationG enericNa me: sulfacet amide sodium Not Available Not Available Not Available Bactroban 2 % topical ointment 07/18 completed Medicati on ID: 00372 Pr escribed By Name: COLLEEN Mesa nd Name: Bactroba n Send Method: E-Prescr ibed Sub s Allowed: subs OK Speci al Instruct ion: to be applied to the ear in office as directed Medicat ionGener icName: Bactroba n Not Available Not Available Not Available losartan 25 mg tablet 03/06 completed Medicati on ID: 746440 D uration Value: 90 Brand Name: losartan Send Method: E-Prescr ibed Sub s Allowed: subs OK Medic ationGen ericName : losartan Not Available Not Available Not Available clotrimaz ole 1 % topical solution 03/15 completed Medicati on ID: [id number] Pr escribed By Name: COLLEEN Mes[place] nd [...] topical cream 05/04 completed Medicati on ID: 937605 P rescribe d By Name: COLLEEN Mes[place] nd Name: hydrocor tisone S end Method: E-Prescr ibed Sub s Allowed: subs OK Speci al Instruct ion: Apply to the external [...] 1 mg tablet active Medicati on ID: 789930 B rand Name: lorazepa m Send Method: E-Prescr ibed Sub s Allowed: subs OK Medic ationGen ericName : lorazepa m Not Available Not Available Not Available Nasonex 50 mcg/actua tion Mifflin 2 spray into both nostrils 07/18 completed [...] pension INSTILL 4 DROPS INTO AFFECTED EAR(S) TWICE DAILY FOR 7 DAYS 2024 active Not Available Not Available Not Avai lable Saline Nasal 0.65 % spray aerosol 1 spray into both nostrils 07/18 [place] Medicati on ID: 35130 Pr escribed By Name: COLLEEN Mesa nd [...] mg tablet 03/06 completed Medicati on ID: 248305 D uration Value: 90 Brand Name: Allergy Relief (loratad ine) Sen d Method: E-Prescr ibed Sub s Allowed: subs OK Seani al Instruct ion: TAKE 1 TABLET BY MOUTH ONCE DAILY Me dication GenericN tank: Allergy Relief (loratad ine) Not Available Not Available Not Available Cortispor in 1 % topical ointment 09/08 completed Medicati on ID: 17590 Pr escribed By Name: COLLEEN Mesa nd Name: Cortispo rin Send Method: E-Prescr ibed Sub s Allowed: subs BRIANNA Henry al Instruct ion: To have applied to ear in office as directed Medicat ionGener icName: Cortispo rin Not Available Not Available Not Available Zithromax TRI-DANNY 500 mg tablet 1 pack by mouth 07/18 completed Medicati on ID: [id number] D uration Value: 3 Prescri bed By Name: Contreras Stern nd Name: Zithroma x TRI-DANNY Send Method: E-Prescr ibed Sub s Allowed: subs OK Medic ationGen ericName : Zithroma x TRI-DANNY Not Available Not Available Not Available Symbicort 160 mcg-4.5 mcg/actua tion HFA aerosol inhaler 07/18 completed Medicati on ID: [id number] D uration Value: 30 Brand Name: Symbicor t Send Method: E-Prescr ibed Sub s Allowed: subs OK Medic ationGen ericName : Symbicor t Not Available Not Available Not Available Vitamin D3 50 mcg (2,000 unit) capsule active Medicati on ID: 101214 B rand Name: Vitamin D3 Send Method: E-Prescr ibed Sub s Allowed: subs OK Seani al Instruct ion: TAKE 1 CAPSULE BY [...] MOUTH EVERY DAY Medi cationGe nericNam e: Sally Urbina Not Available Not Available Not Available Vitals Date Recorded Body height Provider Name an d Address Organization Details Last Updated DateTime 07/18/2024 160.02 cm Bhumi Castaneda [facility] 07/18/2024 09:26:57 Date Recorded Body height Body mass index (BMI) Body weight Provider Name and Address Organization Details Last Updated DateTime 11/21/2024 160.02 cm 33.7 kg/m2 36559.55 g Ewa Whitlock [facility] 11/21/2024 10:01:07 Date Recorded Body weight Body mass index (BMI) Body height Provider Name and Address Organization Details Last Updated DateTime 01/08/2024 92045.37 g 33.3 kg/m2 160.02 cm Kwan Moran [facility] 01/08/2024 09:09:31 Social History None recorded. Functional Status None recorded. Mental Status None recorded. Family History Nothing Reported. Medical History Condition Response Anxiety Y Depression Y Asthma Y Gynecological HistoryNo gynecological history recorded. Obstetrics History GPAL:G 0 P 0 0 0 0 Past Encounters Encounter ID Performer Location Encounter Start Date Encounter Closed Date Diagnosis/Indication Diagnosis SNOMED-CT Code Diagnosis ICD10 Code Diagnosis IMO Codes Diagnosis Note ADAN CASTANEDA PA-C [facility] [address] [address] 01/08/2024 08:59:51 01/08/2024 09:25:15 Bilateral perforation of tympanic membranes 0529864958 735931 H72.93 Chronic mastoiditis 8064 5004 H70.13 Finding of device of ear 952955669 Z96.29 Otorrhea of right ear 10 80323218 278791 H92.11 Total perf oration of bilateral tympanic membranes 6351711910 068699 H72.823 [id number] PARISH ZAMORANO MD [facility] [address] [address] 07/18/2024 08:59:15 07/18/2024 11:15:03 Bilateral perforation of tympanic membranes 4041225562 692000 H72.823 Finding of device of ear 964590817 Z96.29 Both [employer] sites appear healthy [...] different listening environmen ts. Postmastoi dectomy complication 43244377 H95.192 Mixed cond uctive and sensorineural hearing loss, bilateral 139497167 H90.6 Audiologic al evaluation results:Ri ght ear:Modera te to profound mixed hearing loss with good word recognitio n.Left ear:Modera te to profound mixed hearing loss with fair word recognitio n.Tympanom etry:Right Ear:Type ALeft Ear:Type A 58555 ISSAC BELCHER [facility] [address] [address] 07/18/2024 10:09:42 07/18/2024 16:47:10 Mixed conductive and sensorineural hearing loss, bilateral 610032742 H90.6 Audiologic al evaluation results:Ri ght ear:Modera te to profound mixed hearing loss with good word recognitio n.Left ear:Modera te to profound mixed hearing loss with fair word recognitio n.Tympanom etry:Right Ear:Type ALeft Ear:Type A 87336 ISSAC BELCHER [place] [facility] [place] [address] [place] [address] [address] 07/28/2024 14:37:30 07/29/2024 09:01:51 Mixed conductive and sensorineural hearing loss, bilateral 711459985 H90.6 Audiologic al evaluation results:Ri ght ear:Modera te to profound mixed hearing loss with good word recognitio n.Left ear:Modera te to profound mixed hearing loss with fair word recognitio n.Tympanom etry:Right Ear:Type ALeft Ear:Type A 46047 ADAN CASTANEDA PA-C [facility] [address] [place] [address] 11/21/2024 09:41:19 11/21/2024 10:20:25 Total perforation of bilateral tympanic membranes 4168209603 915246 H72.823 Postmastoi dectomy complication 88210662 H95.192 Health Concerns Section Related Observation LastModified by Organization Detai ls LastModified Time None Recorded Concern Status LastModified by Organization Details LastModified Time None Recorded Advance Directives Directive None Recorded Payers Insurance Date Sequence Insurance Name Policy Number Policy Walsh Covered Member ID Walsh Member ID Guarantor Name 11/21/2024 1 [place]IC[place]: [employer] Camila Guerin [id number] Camila Guerin 11/21/2024 2 [place] [facility] Camila Guerin [id number] Camila Guerin Notes Date Note Type Note Provider Name and Address Organization Details Recorded Time 4 text/html ROS as noted in the [facility] 58-year-old female with bilateral mastoid cavity presents for evaluation of otorrhea. She has been having yellow drainage from both sides and want her ears checked. MODESTO MCMILLAN MD [address] [place] [address], [address], [facility] 01/08/2024 09:47:00 5 text/html ROS as noted in the [facility] 58-year-old female with left canal wall down mastoidectomy cavity [...] current discharge. Occasional achiness. PARISH ZAMORANO MD [address] [place] [address],[address], [address], [facility] - [facility] 07/18/2024 11:16:11 5 text/html Audiological Evaluation HPIReported by PatientHearing LossFor hearing loss perceived, patient reportshearing loss in both ears (left ear worse)but reportslongstanding (years). ISSAC BELCHER [address] [facility],[address], [address], [facility] - [facility] 07/18/2024 10:34:28 5 text/html Concerns:1. She brought in all her accessories today as she does not feel comfortable using them and feels they were not connected correctly.2. The battery door of the left BAHA has always been broken, she states it does not close tightly and never has3. She feels she is not hearing as well as she could. Check and clean: GWO Before and after cleaning. Brushed abutment, microphones, and battery doors. Adjustments/solutions:1. I scheduled her an appointment with Marilia from [employer] so she can go over the devices with her. According to the software all the devices are connected to the devices.2. I gave her a new battery door. It is not functioning as it should and should not come loose anymore.3. I updated her settings to her latest audiogram, moved her one step toward brightness and also increased gain by 2 steps all around. She noted a perceived increase in my face and sounds around her with these changes. At this time she is OOW. I gave her my card with my email on it so she can contact me with any questions or concerns. ISSAC BELCHER [address] [facility],[address], [address], [facility] - [facility] 07/28/2024 15:47:16 5 text/html ROS as noted in the HPI 59-year-old female with canal wall down mastoidectomy presents for mastoid debridement. No drainage or changes in hearing since her last visit. PARISH ZAMORANO MD [address] [facility],[place] [address], [place], [address], [facility] - [facility] 11/21/2024 20:37:17 OBGyn Episode No OBEpisode recorded.
--- OUTSIDE RECORDS SUMMARY | 2024-12-30 13:37 | XMS_ITS | Encounter Summary ---
Author Organization [facility] Address [address] [place] [address] Phone Care Team Providers Care Project Development Director Name Role Phone Jamila Adair MD Primary Care Provider [phone] Encounter Details Date Type Department Care Team (Late st Contact Info) Description 09/03/2022 Telephone [facility] [address] [place] [address] Arlyn Parker Social History Tobacco [...] Visit [facility] [address] [facility] [address] [place] [id number] Arlyn Spangler ARNP [address] [facility] [address] [place] [address] documented as of this encounter Visit Diagnoses Not on filedocumented in this encounter Care Teams Project Development Director Relationship Specialty Start Date End Date Jamila Adair MD [address] [facility] 1 [place] [address] PCP - General Internal Medicine 09/22/23 documented as of this encounter
== END 2024-12-30 11:41 | disposition home or self-care (01) ==
LOC: HO.HAP 11:40
PROVIDERS: Visit Provider Internal Medicine
DX: Z46.1 Encounter for fitting and adjustment of hearing aid (principal); H90.3 Sensorineural hearing loss, bilateral
CPT/HCPCS: V5266

== ENCOUNTER 2025-04-03 10:42 | Outpatient (REF) | payer MEDICARE, MEDICAID, SELFPAY ==
--- OUTSIDE RECORDS SUMMARY | 2025-04-03 12:14 | XMS_ITS | Encounter Summary ---
Author Organization [facility] Address [address] [facility] [address] [place] [address] Phone Care Team Providers Care Laundry Press Operator Name Role Phone Jamila Adair MD Primary Care Provider [phone]- [phone] Reason for Visit * Reason Comments Med Refill Encounter Details Date Type Department Care Team (Late st Contact Info) Description 05/17/2024 Refill [facility] [address] [facility] [address] [place] [phone] Alberto Quigley MD [address] [address] Chronic kidney disease, stage 2 [...] [facility] [address] [address] Arlyn Spangler ARNP [address] [address] documented as of this encounter Visit Diagnoses Diagnosis Chronic kidney disease, stage 2 (mild) Hypertension Persistent hematuria Chronic glomerulonephritis documented in this encounter Care Teams Laundry Press Operator Relationship Specialty Start Date End Date Jamila Adair MD [address] [facility] 1 [place] [address] PCP - General Internal Medicine 09/22/23 documented as of this encounter
--- OUTSIDE RECORDS SUMMARY | 2025-04-03 12:14 | XMS_ITS | Encounter Summary ---
Author Organization [facility] Address [address] [facility] 200 [place] [address] Phone Care Team Providers Care Guest Services Officer Name Role Phone Jamila Adair MD Primary Care Provider [phone] Encounter Details Date Type Department Care Team (Late Contact Info) Description 12/17/2021 Telephone [facility] 200 [place] [address] [place] MD [address] [place] [address] Social History Tobacco Use Types Packs/Day Years [...] [facility] [address] [facility] 204 [place] [address] Arlyn Spangler ARNP 3550 [facility] 204 [place] [address] documented as of this encounter Visit Diagnoses Not on filedocumented in this encounter Care Teams Guest Services Officer Relationship Specialty Start Date End Date Jamila Adair MD 75 [facility] 1 [place] [address] PCP - General Internal Medicine 09/22/23 documented as of this encounter
--- OUTSIDE RECORDS SUMMARY | 2025-04-03 12:14 | XMS_ITS | Data Portability ---
Author Organization [place] - [facility], All[facility] Address [address] [address] Care Team Providers Care Baking Assistant Name Role Phone ALEXACHAPIN Primary Care Provider [...] in 6 months for routine mastoid debridement. [email or web address] Not available 01/08/2024 09:35:35 07/18/2024 07/18/2024 Follow [...] may be fine coming every 6 months. [email or web address] Not available 07/18/2024 11:15:58 11/21/2024 11/21/2024 59-year-old female presents for mastoid debridement. On the right side she has a large extended atticotomy which is free of debris or otorrhea. Total TM perforation which is dry. Left canal wall down mastoidectomy free of debris or otorrhea. She will continue dry ear precaution and follow-up in 4 months. All questions were answered. [email or web address] Not available 11/21/2024 11:27:56 Plan of Treatment Reminders Order Date Submit Date Provider Last Modified By Organization Details Last Modified Time Details Appointments Establish ed 15 2025 09:30A M ADAN CASTANEDA PA-C Not available Not available Not available Lab None recorded. Referral None recorded. Procedures None recorded. Surgeries None recorded. Imaging None recorded. Medication Orders tobramyci n 0.3 %-dexamet hasone 0.1 % eye drops,cami pension 2024 025 [facility] [address] [place] [address], [id number], 07/18/2024 10:05:08 ofloxacin 0.3 % ear drops 2023 025 [facility] [address], [address] [place] [address], [address], 07/18/2024 09:27:56 Patient TargetsNo targets recorded. 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; Note: Date Diagnose d: 11/07/2014 11:50 AM (383.33) Not Available [facility] 4 02:13:51 Candidal otitis externa 54693292 Active 2014 Otomycos is; Note: Date Diagnose d: 5 3:09 PM (112.82) Not Available [facility] 4 02:14:19 Postmast oidectom y complica tion 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 Active 2014 Other disorder s followin g mastoide ctomy, left ear; Note: Date Diagnose d: 03/15/20 15 1:38 PM (H95.192 ) Not Available [facility] 4 02:13:31 Bilatera l perforat ion of tympanic membrane s 53989187111 40701 Active 2014 Unspecif ied perforat ion of tympanic membrane , bilatera l; Note: Date Diagnose d: 03/15/20 15 1:38 PM (H72.93) [mapped from ICD9 code: 384.20] Not Available [facility] 4 02:14:04 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 Completed 201611/06/2023 Other specifie d superfic ial mycoses; Note: Date Diagnose d: 7 2:12 PM (B36.8) Not Available [facility] 4 02:13:15 Marginal perforat ion of tympanic membrane 05281273 Active 2016 Other marginal perforat ions of tympanic membrane , left ear; Note: Date Diagnose d: 12/09/2016 2:59 PM (H72.2X2 ) Not Available [facility] 4 02:14:07 Acute lymphade nitis 68905076 Active 2016 Acute lymphade nitis, unspecif ied; Note: Date Diagnose d: 12/09/2016 2:58 PM (L04.9) Not Available [facility] 4 02:14:12 Total perforat ion of right tympanic membrane 28788603591 60425 Active 2016 Total perforat ions of tympanic membrane , right ear; Note: Date Diagnose d: 12/09/2016 2:58 PM (H72.821 ) Not Available [facility] 4 02:13:39 Pain of left temporom andibula r joint 50344680924 021872 Active 2016 Arthralg ia of left temporom andibula r joint; Note: Date Diagnose d: 12/09/2016 3:00 PM (M26.622 ) Not Available formerly [facility] 4 02:13:11 Otorrhea of bilatera l ears 95198478294 71336 Active 2017 Otorrhea , bilatera l; Note: Date Diagnose d: 8 3:55 PM (H92.13) Not Available formerly [facility] 4 02:14:18 Acute sinusiti s 59617424 Completed 201811/06/2023 Other acute sinusiti s; Note: Date Diagnose d: 9 3:44 PM (J01.80) Not Available formerly [facility] 4 02:13:51 Mixed conducti ve and sensorin eural hearing loss, bilatera l 344527939 Active 2018 Hearing loss: Mixed hearing loss, bilatera l; Location : [facility] l Condit ion: stable N ote: Date [...] Start Date : 03/15/20 15 Not Available [facility] 4 02:14:19 Otorrhea of left ear 69521568680 23160 Active 2019 Otorrhea , left ear; Note: Date Diagnose d: 08/11/2019 2:23 PM (H92.12) Not Available [facility] 4 02:14:15 Impacted cerumen in right ear 67796800044 80313 Active 2019 Impacted cerumen, right ear; Note: Date Diagnose d: 0 4:17 PM (H61.21) Impact ed cerumen, right ear; Note: Date Diagnose d: 0 9:18 AM (H61.21) ; Start Date : 07/29/19 Not Available [facility] 4 02:13:38 Benign paroxysm al position al vertigo 842317262 Active 2020 Benign paroxysm al vertigo, right ear; Note: Date Diagnose d: 1 3:57 PM (H81.11) Not Available [facility] 4 02:14:42 Total perforat ion of bilatera l tympanic membrane s 82114081793 13147 Active 2020 Total perforat ions of tympanic membrane , bilatera l; Note: Date Diagnose d: 1 3:58 PM (H72.823 ) Not Available [facility] 4 02:13:15 Acute frontal sinusiti s 42842845 Completed 202211/06/2023 Acute recurren t frontal sinusiti s; Note: Date Diagnose d: 11/04/2022 4:04 PM (J01.11) Not Available [facility] 4 02:13:04 Otorrhea of right ear 66975449296 04800 Active 2022 Otorrhea , right ear; Note: Date Diagnose d: 11/04/2022 4:04 PM (H92.11) Not Available [facility] 4 02:13:52 Finding of device of ear 941475594 Active 2022 Presence of bone-con duction hearing device; Note: Date Diagnose d: 12/11/2022 5:42 PM (Z96.29) Not Available formerly [facility] 4 02:12:51 Sensorin eural hearing loss of bilatera l ears 764347424 Active 2024 ISSAC BELCHER [address] [facility],[place] [address], [place], [address] , [facility] 5 10:09:53 Problem Notes None recorded. Procedures Surgical History Date Name Laterality Status Provider Name and Address Organization Details Recorded Time 5 Comp Audio with Tymps - 11896 & 27638 completed ISSAC BELCHER 100 [facility],[place] [address], [place], [address], [facility] - [facility] 07/18/2024 10:09:52 5 Debridement of Mastoid Cavity left completed PARISH ZAMORANO MD 100 [facility],[place] [address], [place], [address], [facility] 07/18/2024 10:02:11 4 Debridement of Mastoid Cavity bilat completed ADAN CASTANEDA PA-C [address] [facility],[place] [address], [place], [address], [facility] 01/08/2024 09:33:33 Imaging Results None recorded. Procedure Notes None recorded. Medical Equipment None Reported. Allergies Allergen ID Allergen Name Allergen Category Reaction Reaction Severity Criticality Documentation Date Start Date Code Code System Note Provider Name and Address Organization Details Recorded Time 19925 clindamyc in hydrochlo ride medicatio n other Not available Not available 08/18/2023 97433 RxNorm React ion: unkno wn, unspe cifie d;; Not Available formerly [facility] 4 00:49:57 02928 ibuprofen medicatio n other Not available Not available 08/18/2023 5640 RxNorm React ion: unkno wn, unspe cifie d;; Not Available formerly [facility] 4 00:50:08 44279 latex environme nt,medica tion other Not available Not available 08/18/2023 63578 91 RxNorm React ion: unkno wn, unspe cifie d;; Not Available [facility] 4 00:50:09 27615 oxycodone medicatio n other Not available Not available 08/18/2023 7804 RxNorm React ion: unkno wn, unspe cifie d;; Not Available formerly [facility] 4 00:50:10 47023 ciproflox acin hydrochlo ride medicatio n other Not available Not available 08/18/2023 99360 RxNorm React ion: unkno wn, unspe cifie d;; Not Available formerly [facility] 4 00:50:22 95896 fluoxetin e medicatio n other Not available Not available 08/18/2023 4493 RxNorm React ion: unkno wn, unspe cifie d;; Not Available formerly [facility] 4 00:24:17 71521 acetamino phen medicatio n other Not available Not available 08/18/2023 161 RxNorm React ion: unkno wn, unspe cifie d;; Not Available formerly [facility] 4 00:50:40 69584 penicilli n V potassium medicatio n other Not available Not available 08/18/2023 24045 5 RxNorm React ion: unkno wn, unspe cifie d;; Not Available formerly [facility] 4 00:50:41 Medications Name Sig Start Date [...] by mouth 07/18 completed Medicati on ID: 230248 D uration Value: 10 Brand Name: doxycycl [...] topical cream 10/02 completed Medicati on ID: [id number] P rescribe d By Name: COLLEEN [place] Name: Lotrison e Send Method: E-Prescr ibed Sub s Allowed: subs OK Speci al Instruct ion: apply to external ear tid X 2 weeks Me dication GenericN tank: Lotrison e Not Available Not Available Not Available hydrocodo ne 5 mg-acetam inophen 325 mg tablet 12/20 completed Medicati on ID: 748729 D uration Value: 5 Reason: () Brand Name: hydrocod one-acet aminophe n Send Method: E-Prescr ibed Sub s Allowed: subs OK Medic ationGen ericName : hydrocod one-acet aminophe n Not Available Not Available Not Available Zithromax Z-Danny 250 mg tablet Take 1 pack by mouth as directed 07/18 completed Medicati on ID: 173895 P rescribe d By Name: Contreras Stern [...] 20 mg tablet active Medicati on ID: 919386 B rand Name: famotidi ne Send Method: E-Prescr ibed Sub s Allowed: subs OK Medic ationGen ericName : famotidi ne Not Available Not Available Not Available lorazepam 0.5 mg tablet 03/06 completed Medicati on ID: 827664 D uration Value: 30 Brand Name: lorazepa [...] topical jelly 12/20 completed Medicati on ID: [id number] P rescribe d By Name: COLLEEN [place] Name: K-Y Lubricat ing Send Method: E-Prescr ibed Sub s Allowed: subs OK Speci al Instruct ion: Apply to nose TID Medi cationGe nericNam e: K-Y Lubricat ing Not Available Not Available Not Available sulfaceta mide sodium 10 % eye drops 07/18 completed Medicati on ID: 02852 Du ration Value: 10 Prescri bed By Name: COLLEEN [place] Name: sulfacet amide sodium S end Method: E-Prescr ibed Sub s Allowed: subs OK Speci al Instruct ion: 4 drops into left ear bid X 10 days Med icationG enericNa me: sulfacet amide sodium Not Available Not Available Not Available Bactroban 2 % topical ointment 07/18 completed Medicati on ID: 87656 Pr escribed By Name: COLLEEN [place] Name: Bactroba n Send Method: E-Prescr ibed Sub s Allowed: subs OK Speci al Instruct ion: to be applied to the ear in office as directed Medicat ionGener icName: Bactroba n Not Available Not Available Not Available losartan 25 mg tablet 03/06 completed Medicati on ID: 247530 D uration Value: 90 Brand Name: losartan Send Method: E-Prescr ibed Sub s Allowed: subs OK Medic ationGen ericName : losartan Not Available Not Available Not Available clotrimaz ole 1 % topical solution 03/15 completed Medicati on ID: 98014 Pr escribed By Name: COLLEEN Mes[place] nd [...] topical cream 05/04 completed Medicati on ID: 294511 P rescribe d By Name: COLLEEN Mesa [...] 1 mg tablet active Medicati on ID: 800663 B rand Name: lorazepa m Send Method: E-Prescr ibed Sub s Allowed: subs OK Medic ationGen ericName : lorazepa m Not Available Not Available Not Available Nasonex 50 mcg/actua tion Dixie 2 spray into both nostrils 07/18 completed [...] both nostrils 07/18 completed Medicati on ID: 52394 Pr escribed By Name: COLLEEN [place] nd [...] mg tablet 03/06 completed Medicati on ID: 614625 D uration Value: 90 Brand Name: Allergy Relief (loratad ine) Sen d Method: E-Prescr ibed Sub s Allowed: subs OK Seani al Instruct ion: TAKE 1 TABLET BY MOUTH ONCE DAILY Me dication GenericN tank: Allergy Relief (loratad ine) Not Available Not Available Not Available Cortispor in 1 % topical ointment 09/08 completed Medicati on ID: 45976 Pr escribed By Name: COLLEEN Mes[place] nd Name: Cortispo rin Send Method: E-Prescr ibed Sub s Allowed: subs BRIANNA Henry al Instruct ion: To have applied to ear in office as directed Medicat ionGener icName: Cortispo rin Not Available Not Available Not Available Zithromax TRI-DANNY 500 mg tablet 1 pack by mouth 07/18 completed Medicati on ID: 796696 D uration Value: 3 Prescri bed By Name: Contreras Stern nd Name: Zithroma x TRI-DANNY Send Method: E-Prescr ibed Sub s Allowed: subs OK Medic ationGen ericName : Zithroma x TRI-DANNY Not Available Not Available Not Available Symbicort 160 mcg-4.5 mcg/actua tion HFA aerosol inhaler 07/18 completed Medicati on ID: 796335 D uration Value: 30 Brand Name: Symbicor t Send Method: E-Prescr ibed Sub s Allowed: subs OK Medic ationGen ericName : Symbicor t Not Available Not Available Not Available Vitamin D3 50 mcg (2,000 unit) capsule active Medicati on ID: 389694 B rand Name: Vitamin D3 Send Method: [...] Updated DateTime 07/18/2024 160.02 cm Bhumi Castaneda [facility] 07/18/2024 09:26:57 Date Recorded Body height Body mass index (BMI) Body weight Provider Name and Address Organization Details Last Updated DateTime 11/21/2024 160.02 cm 33.7 kg/m2 29906.55 g Ewa Whitlock [facility] 11/21/2024 10:01:07 Date Recorded Body weight Body mass index (BMI) Body height Provider Name and Address Organization Details Last Updated DateTime 01/08/2024 77474.37 g 33.3 kg/m2 160.02 cm Kwan Moran [facility] 01/08/2024 09:09:31 Social History None recorded. Functional [...] Diagnosis Note ADAN CASTANEDA PA-C [facility] [address] [address] 01/08/2024 08:59:51 01/08/2024 09:25:15 Bilateral perforation of tympanic membranes 8860801083 292475 H72.93 Chronic mastoiditis 8064 5004 H70.13 Finding of device of ear 905503019 Z96.29 Otorrhea of right ear 10 00762427 912380 H92.11 Total perf oration of bilateral tympanic membranes 0567619555 205776 H72.823 48282 PARISH ZAMORANO MD [facility] [address] [address] 07/18/2024 08:59:15 07/18/2024 11:15:03 Bilateral perforation of tympanic membranes 7102154040 469706 H72.823 Finding of device of ear 069891366 Z96.29 Both [employer] sites appear healthy [...] different listening environmen ts. Postmastoi dectomy complication 89777207 H95.192 Mixed cond uctive and sensorineural hearing loss, bilateral 703224583 H90.6 Audiologic al evaluation results:Ri ght ear:Modera te to profound mixed hearing loss with good word recognitio n.Left ear:Modera te to profound mixed hearing loss with fair word recognitio n.Tympanom etry:Right Ear:Type ALeft Ear:Type A 22886 ISSAC BELCHER [facility] - [address] [address] 07/18/2024 10:09:42 07/18/2024 16:47:10 Mixed conductive and sensorineural hearing loss, bilateral 826013153 H90.6 Audiologic al evaluation results:Ri ght ear:Modera te to profound mixed hearing loss with good word recognitio n.Left ear:Modera te to profound mixed hearing loss with fair word recognitio n.Tympanom etry:Right Ear:Type ALeft Ear:Type A 70100 ISSAC BELCHER [place] [address] [place] [address] [address] 07/28/2024 14:37:30 07/29/2024 09:01:51 Mixed conductive and sensorineural hearing loss, bilateral 440129493 H90.6 Audiologic al evaluation results:Ri ght ear:Modera te to profound mixed hearing loss with good word recognitio n.Left ear:Modera te to profound mixed hearing loss with fair word recognitio n.Tympanom etry:Right Ear:Type ALeft Ear:Type A 32888 ADAN CASTANEDA PA-C [facility] 100 [place] [address] 11/21/2024 09:41:19 11/21/2024 10:20:25 Total perforation of bilateral tympanic membranes 3563471231 070643 H72.823 Postmastoi dectomy complication 08436232 H95.192 Health Concerns Section Related Observation LastModified by Organization Detai ls LastModified Time None Recorded Concern Status LastModified by Organization Details LastModified Time None Recorded Advance Directives Directive None Recorded Payers Insurance Date Sequence Insurance Name Policy Number Policy Walsh Covered Member ID Walsh Member ID Guarantor Name 11/21/2024 1 MEDICARE B-CO: [employer] Caimla Guerin [id number] Camila Guerin 11/21/2024 2 [place]: [facility] Camila Guerin [id number] Camila Guerin Notes Date Note Type Note Provider Name and Address Organization Details Recorded Time 4 text/html ROS as noted in the [facility] 58-year-old female with bilateral mastoid cavity presents for evaluation of otorrhea. She has been having yellow drainage from both sides and want her ears checked. MODESTO MCMILLAN MD [address] [place] [address], [address], [facility] 01/08/2024 09:47:00 5 text/html ROS as noted in the [facility] 58-year-old female with left canal [...] current discharge. Occasional achiness. PARISH ZAMORANO MD [address] [place] [address],[address], [address], [facility] - [facility] 07/18/2024 11:16:11 5 text/html Audiological Evaluation HPIReported by PatientHearing LossFor hearing loss perceived, patient reportshearing loss in both ears (left ear worse)but reportslongstanding (years). ISSAC BELCHER 100 [facility],[address], [address], [facility] - [facility] 07/18/2024 10:34:28 5 text/html Concerns:1. She [...] scheduled her an appointment with Marilia from That{img} so she can go over the devices [...] any questions or concerns. ISSAC BELCHER 100 [facility],[address], [address], [facility] - [facility] 07/28/2024 15:47:16 5 text/html ROS as noted in the HPI 59-year-old female with canal wall down mastoidectomy presents for mastoid debridement. No drainage or changes in hearing since her last visit. PARISH ZAMORANO MD 100 [facility],[place] [address], [place], [address], [facility] - [facility] 11/21/2024 20:37:17 OBGyn Episode No OBEpisode recorded.
--- OUTSIDE RECORDS SUMMARY | 2025-04-03 12:14 | XMS_ITS | Encounter Summary ---
Author Organization [facility] Address [address] [place] [address] Phone Care Team Providers Care Milliner Helper Name Role Phone Jamila Adair MD Primary Care Provider [phone]- [phone] Encounter Details Date Type Department Care Team (Late st Contact Info) Description 09/03/2022 Telephone [facility] [address] [place] [address] Arlyn Parker Social History Tobacco [...] [facility] [address] [facility] [address] [place] [address] Arlyn Spangler ARNP [address] [facility] [address] [place] [address] documented as of this encounter Visit Diagnoses Not on filedocumented in this encounter Care Teams Milliner Helper Relationship Specialty Start Date End Date Jamlia Adair MD 75 [facility] 1 [place] [address] PCP - General Internal Medicine 09/22/23 documented as of this encounter
--- OUTSIDE RECORDS SUMMARY | 2025-04-03 12:14 | XMS_ITS | Clinical Summary ---
Author Organization [facility]. Address [address] [facility] 204 [place] [address] Phone Care Team Providers Care Director Emergency Name Role Phone Jamila Adair MD Primary Care Provider [phone]- [phone] Allergies Active Allergy Reactions Criticality Noted Date [...] oxybutynin XL (DITROPAN-XL) 15 MG 24 hr tabletIndications:Senior Statistical Programmer kavita kidney disease, stage 2 (mild),Hypertension,Pe rsistent [...] bed time Active losartan (COZAAR) 50 MG tabletIndications:Senior Statistical Programmer kavita kidney disease, stage 2 (mild),Hypertension Take [...] kidney disease, stage 2 (mild) Hypertension 06/27/2020 Family History Medical History Relation Comments Cancer [...] Visit [facility] [address] [facility] 204 [place] [address] Arlyn Spangler ARNP [address] [facility] [address] [place] [address] Health Maintenance Due Date Last Done Comments [...] [place] Care Teams Director Emergency Relationship Specialty Start Date End Date Jamila Adair MD 75 [facility] [address] 1 [place] [address] PCP - General Internal Medicine 09/22/23
--- OUTSIDE RECORDS SUMMARY | 2025-04-03 12:14 | XMS_ITS | Clinical Summary ---
Author Organization [facility] Address [address] [address] Phone Care Team Providers Care Group Fitness Assistant Department Head Name Role Phone Sukhjinder Oconnell MD Primary [...] (#1) 2024 , 01/01/2015, 12/30/2008 COVID-19 VACCINE (2 - 2024-2 6 season) 2024 06/07/2020 RSV VACCINE (1 - 1-dose 75+ series) 2042 SMOKING STATUS SCREENING (On ce After 26 [...] file Insurance MEDICARE PART A & B [facility] MEDICARE PART A & [place] [id number] MEDICARE PART A & [place] [id number] MEDICARE PART A & [place] Care Teams Group Fitness Assistant Department Head Relationship Specialty Start Date End Date Sukhjinder Oconnell MD PCP - General Internal Medicine 12/25/21 Additional Source Comments The information contained in this document represents components of the legal health record. It is not the complete legal health record.[facility]
--- OUTSIDE RECORDS SUMMARY | 2025-04-03 12:14 | XMS_ITS | Encounter Summary ---
Author Organization [facility] Address [address] [facility] [address] [place] [address] Phone Care Team Providers Care [employer] Name Role Phone Jamila Adair MD Primary Care Provider [phone] Reason for Visit * Reason Comments Med Refill Encounter Details Date Type Department Care Team (Late st Contact Info) Description 07[facility]12/2023 [facility] [address] [facility] [address] [place] [address] Juanjo Jean MD [id number] [address] Social History Tobacco Use Types [...] Visit [facility] [address] [facility] [address] [place] [address] Arlyn Spangler ARNP [address] [facility] [address] [place] [address] documented as of this encounter Visit Diagnoses Not on filedocumented in this encounter Care Teams [employer] Shrinker Relationship Specialty Start Date End Date Jamila Adair MD [address] [facility] [address] [place] [id number] PCP - General Internal Medicine 09/22/23 documented as of this encounter
== END 2025-04-03 10:43 | disposition home or self-care (01) ==
LOC: HO.HAP 10:42
PROVIDERS: Visit Provider Internal Medicine
DX: Z46.1 Encounter for fitting and adjustment of hearing aid (principal); H90.3 Sensorineural hearing loss, bilateral
CPT/HCPCS: V5266